=== PATIENT | female | born 1970 | race Caucasian/White ===

== ENCOUNTER → 2024-07-04 | Outpatient (CLI) | payer BC, SELFPAY ==
[2024-07-04 12:19] LABS: Absolute Lymphocyte Count 3.15 X10^3/uL (0.83-4.51); Absolute Neutrophil Count 5.7 X10^3/uL (2.0-7.7); Basophil# 0.28 X10^3/uL; Eosinophil# 4.15 X10^3/uL; Eosinophils% 29.3 % (0-5); Hematocrit 46.7 % (37-47); Hemoglobin 15.3 g/dL (12.0-15.0); Lymphocyte # 3.15 X10^3/ul (0.83-4.51); Lymphocyte % 22.3 % (19-41); Mean Corp Hgb Conc 32.8 g/dL (32-36); Mean Corpuscular Hgb 28.3 pg (27.0-32.0); Mean Corpuscular Volume 86.3 fL (81-99); Mean Platelet Vol. 8.8 fl (6.2-12.0); Monocyte# 0.71 X10^3/uL; NRBC Flagged by Analyzer 0 % (0-5); Neutrophil # 5.72 X10^3/uL (2.7-7.7); Neutrophil % 40.4 % (47-70); POSITIVE DIFFERENTIAL YES; Platelet Count 472 K/mm3 (150-450); RBC Distribution Width CV 12.7 % (11.6-14.6); RBC Distribution Width SD 39.7 fl (35.1-43.9); Red Blood Count 5.41 M/mm3 (4.2-5.4); White Blood Count 14.2 K/mm3 (4.4-11.0)
[2024-07-04 12:22] LABS: Color, Urine Yellow (Yellow); Glucose, Dipstick Normal (Normal); Ketone-Dipstick Negative (Negative); Leukocyte Esterase-Dipstick 25 /ul (Negative); Nitrite-Dipstick Negative (Negative); Occult Blood-Urine Negative /ul (Negative); Protein-Dipstick 15 mg/dl (Negative); Urine Bilirubin Dipstick Negative (Negative); Urine Clarity Sl. Cloudy (Clear); Urine Urobilinogen Normal (Normal)
[2024-07-04 12:43] LABS: Protein, Urine (Random) 7.7 mg/dL (<11.9); Protein:Creat Ratio 76 mg/g CRE (0-200)
[2024-07-04 12:50] LABS: AST(SGOT) 11 U/L (15-37); Alanine Aminotransfer ALT/SGPT 12 U/L (13-56); Albumin, Serum 3.9 g/dL (3.2-5.0); Alkaline Phosphatase 111 U/L (45-117); Anion Gap 6 (5-15); BUN 17 mg/dL (7-18); Calcium,Total 9.5 mg/dL (8.5-10.1); Chloride 103 mmol/L (98-107); Creatinine, Serum 0.89 mg/dL (0.55-1.02); EST Glomerular Filtration Rate 70 mL/min (>60); Est Glom Filt Rate - Afr Amer 85 mL/min (>60); Globulin 3.8 g/dL (2.2-4.2); Glucose 82 mg/dL (74-106); Protein, Total 7.7 g/dL (6.4-8.2); Sodium Level 137 mmol/L (136-145)
[2024-07-04 13:11] LABS: Differential Indicated SCAN CRITERIA MET
[2024-07-04 13:12] LABS: Differential Comment SCANNED
[2024-07-04 13:15] LABS: Hepatitis B Surface Antibody Reactive; Hepatitis B Surface Antigen Non-Reactive (Nonreactive); Hepatitis C Antibody Non-Reactive (Nonreactive)
[2024-07-04 16:21] LABS: Pathologist Review Reviewed
[2024-07-04 18:47] LABS: EXAGEN MAILED SPECIMEN
[2024-07-07 14:08] LABS: Dilute Prothrombin Time (dPT) 44.6 sec (0.0-47.6); Dilute Russell Viper Venom 40.3 sec (0.0-47.0); Hexagonal Phase Phospholipid 2 5 sec (0-11); Interpretation Comment: (.); PTT-LA 45.7 sec (0.0-43.5); PTT-LA Mix 41.8 sec (0.0-40.5); Thrombin Time 21.1 sec (0.0-23.0); dPT Confirm Ratio 1.14 Ratio (0.00-1.34)
== END | disposition home or self-care (01) ==
PROVIDERS: Referring Provider Internal Medicine Rheumatology; Visit Provider Internal Medicine Rheumatology
DX: M06.4 Inflammatory polyarthropathy (principal); R76.8 Other specified abnormal immunological findings in serum; M79.7 Fibromyalgia
CPT/HCPCS: 36415; 80053; 81002; 82570; 84156; 85025; 86706; 86803; 87340

== ENCOUNTER → 2025-03-15 | Outpatient (CLI) | payer BC, SELFPAY ==
--- NOTE | 2025-03-15 15:33 | RAD_ITS ---
PROCEDURE: CHEST PA AND LATERAL 03/15/2025 REASON FOR EXAM: NURSING HOME DRUG THERAPY TECHNIQUE: Procedure Code: RADCXR Modality: DX Procedure: CHEST PA AND LATERAL COMPARISON: None FINDINGS: Hardware: None Heart: The heart size is normal. Mediastinum: The mediastinal contour is unremarkable. Lungs: The lungs are clear. Bones: There is slight increased kyphotic curvature of the thoracic spine. There is a very subtle dextroscoliosis of the thoracic spine. Very mild spondylosis is noted. RAD/Chest PA and Lateral IMPRESSION: No acute cardiopulmonary process is identified radiographically. Reading Location: [id number]
--- OUTSIDE RECORDS SUMMARY | 2025-03-15 15:50 | XMS RPT_ITS | CCD ---
Author Organization [facility] Care Team Providers Care Tanning Wheel Operator Name Role Phone TRACY GUEVARA Unavailable Unavailable Clyde COATES Carmen Loli Unavailable [phone] Carmen Tang Primary Care Provider [phone] Clyde COATES Carmen Loli Unavailable Carmen Tang Primary Care Provider [phone] CARMEN TANG Primary Care Unavailable CARMEN TANG Attending Unavailable Carmen Tang Attending Unavailable Clyde Carmen L Attending Unavailable Al Nemr, Hazel Attending Unavailable Clyde COATES Carmen Loli Unavailable Clyde RETAIL LOSS PREVENTION SPECIALISTKEVIN Carmen Eloisa Primary Care Provider EVANGELIST DIAZ MD Attending Unavail able CLYDE COATES CARMEN Pleitez Primary Care Physician SHIRA SANCHEZ, MAHOGANY Armenta Attending Unavailable CLYDE COATES CARMEN Pricilla Primary Care Unavailable GONZÁLEZ SANCHEZ, SUE Consulting Unavailable JESICA SANCHEZ, LM Consulting Unavailable CLYDE COATES CARMEN Pricilla Primary Care Unavailable EVANGELIST DIAZ MD Attending Unavail able Mary Kate FERRERA Primary Care Unavailable Zuleika Fleming Referring Unavailable Zuleika Fleming Attending Unavailable ROOSEVELTCOREEN WYNN Attending Unavailable CLYDE CARMEN L Primary Care Unavailable ROOSEVELTCOREEN WYNN Attending Unavailable CLYDE CARMEN L Primary Care Unavailable ROOSEVELTCOREEN WYNN Attending Unavailable CLYDE CARMEN Pricilla Primary Care Unavailable ROOSEVELTCOREEN WYNN Referring Unavailable CLYDE CARMEN Pricilla Primary Care Unavailable ROOSEVELTCOREEN WYNN Attending Unavailable AL NEMR, BADIE Referring Unavailable FREEMAN TANGAH E Primary Care Unavailable AL HAZEL MAZARIEGOS Referring Unavailable TANGCARMEN Primary Care Unavailable AL HAZEL MAZARIEGOS Referring Unavailable CLYDECARMEN Eloisa Primary Care Unavailable ZULEIKA FLEMING Referring Unavailable CLYDECARMEN Eloisa Primary Care Unavailable Medications Current Medications Medication Drug Class(es) Dates Sig (Normalized) Sig (Original) acetaminophen 325 mg oral capsule (5 sources) acetaminophen (TYLENOL) 325 mg cap Take by mouth. 0 Active Comment on above: Take by mouth. alendronic acid 70 mg oral tablet (1 source) Bisphosphonate Start: 03-06-2024 alendronate 70 mg oral tablet Dose : 70 mg = 1 tab(s), Oral, Tuesday, # 12 tab(s), 0 Refill(s) Start Date: 03/06/24 Status: Ordered aspirin 81 mg delayed release oral tablet (1 source) Platelet Aggregation Inhibitor, Nonsteroidal Anti-inflammatory Drug Start: 03-06-2024 aspirin 81 mg oral delayed release tablet Dose : 81 mg = 1 tab(s), Oral, Daily, Last Dose 02/27/24, 0 Refill(s) Start Date: 03/06/24 Status: Ordered Calcium (1 source) Phosphate Binder, Calcium Start: 03-06-2024 take 1 tablet by mouth once daily Calcium 600+D oral tablet Dose = 1 tab(s), Oral, Daily, 0 Refill(s) Start Date: 03/06/24 Status: Ordered calcium acetate (5 sources) CALCIUM ACETATE ORAL Take by mouth. 0 Active Comment on above: Take by mouth. ergocalciferol 1.25 mg oral capsule (6 sources) Provitamin D2 Compound Start: 03-06-2024 ergocalciferol 50,000 intl units (1.25 mg) oral capsule Dose : 50,000 International_Unit = 1 cap(s), Oral, Tuesday, # 4 cap(s), 0 Refill(s) Start Date: 03/06/24 Status: Ordered Start: 03-14-2021 ergocalciferol 50,000 unit capsule (VITAMIN D2, DRISDOL) Fish Oils (1 source) Start: 03-06-2024 Fish Oil 1000 mg oral capsule Dose : 1,000 mg = 1 cap(s), Oral, qDay, # 90 cap(s), 0 Refill(s) Start Date: 03/06/24 Status: Ordered fluticasone propionate 0.05 mg/actuat metered dose nasal spray (5 sources) Corticosteroid Start: 01-02-2021 fluticasone (F LONASE) 50 mcg/actuation nasal spray folic acid 0.8 mg oral tablet (6 sources) Start: 03-06-2024 folic acid 0.8 mg oral tablet Dose : 0.8 mg = 1 tab(s), Oral, qAM, # 250 tab(s), 0 Refill(s) Start Date: 03/06/24 Status: Ordered FOLIC ACID ORAL Take by mouth. 0 Active Comment on above: Take by mouth. hydrOXYzine hydrochloride 50 mg oral tablet (5 sources) Antihistamine Start: 2020 hydrOXYzine HCl (ATARAX) 50 mg tablet montelukast 10 mg oral tablet (5 sources) Leukotriene Receptor Antagonist take 1 tablet by mouth once daily at bedtime montelukast (SINGULAIR) 10 mg tablet Take 10 mg by mouth daily at bedtime. 0 Active Comment on above: Take 10 mg by mouth daily at bedtime. 60 actuat tiotropium 0.0025 mg/actuat inhalation spray (1 source) Anticholinergic Start: 2023 take 2 puff(s) by inhalation once daily in the morning Spiriva Respimat 60 ACT 2.5 mcg/inh inhalation aerosol 2 puff(s), Inhalation, qAM, # 4 gram(s), 0 Refill(s) Start Date: 03/06/24 Status: Ordered topiramate 100 mg oral tablet (5 sources) Start: 2020 take 1 tablet by mouth twice daily topiramate (TOPAMAX) 100 mg tablet TAKE 1 TABLET BY MOUTH TWICE A DAY 60 tablet 2 05/06/2021 Active Comment on above: TAKE 1 TABLET BY LIZY TWICE A DAY vitamin b12 1 mg oral tablet (5 sources) Vitamin B12 take 1 tablet by mouth once daily cyanocobalamin (VITAMIN B-12) 1,000 mcg tab Take 1,000 mcg by mouth once daily. 0 Active Comment on above: Take 1,000 mcg by mo [facility] once daily. Vitamin B12 5000 mcg oral tablet, disintegrating (1 source) Start: 2023 Vitamin B12 5000 mcg oral tablet, disintegrating Dose : 5,000 mcg = 1 tab(s), Oral, qDay, # 100 tab(s), 0 Refill(s) Start Date: 03/06/24 Status: Ordered Problems Active Problems Problem Classification Problem Date Documented Date Episodic/Chronic Immunizations and screening for infectious disease (1 source) Other specified abnormal immunological findings in serum; Translations: [False positive serological test for syphilis] Onset: 09-07-2024 Episodic Other aftercare (2 sources) Other detention (current) drug therapy; Translations: [Other home demonstrator (current) drug therapy] Onset: 05-09-2024 Episodic Other connective tissue disease (1 source) Fibromyalgia; Translations: [Scapulohumeral fibrositis] Onset: 09-07-2024 Episodic Other infections; including parasitic (2 sources) Lyme disease; Translations: [Lyme disease, unspecified] 10-18-2023 Episodic Other screening for suspected conditions (not mental disorders or infectious disease) (4 sources) Abnormal coagulation profile; Translations: [Abnormal coagulation profile] Onset: 01-25-2024 Episodic Rheumatoid arthritis and related disease (2 sources) Inflammatory polyarthropathy; Translations: [Inflammatory polyarthropathy] Onset: 07-26-2024 Chronic Systemic lupus erythematosus and connective tissue disorders (1 source) Systemic involvement of connective tissue, unspecified; Translations: [Systemic involvement of connective tissue, unspecified] Onset: 04-12-2024 Chronic Past or Other Problems Problem Classification Problem Date Documented Da te Episodic/Chronic Fever of unknown origin (8 sources) Fever; Translations: [Fever presenting with conditions classified elsewhere] Onset: 10-25-2023 10-18-2023 Episodic Headache; including migraine (8 sources) Daily headache; Translations: [Headache, chronic daily] Onset: 04-07-2021 04-07-2021 Episodic Other bone disease and musculoskeletal deformities (1 source) Disorder of bone, unspecified; Translations: [Disorder of bone, unspecified] Onset: 04-12-2024 Episodic Other infections; including parasitic (2 sources) Lyme disease, unspecified; Translations: [Lyme disease] Onset: 10-25-2023 Episodic Thyroid disorders (1 source) Disorder of thyroid, unspecified; Translations: [Disorder of thyroid, unspecified] Onset: 04-12-2024 Episodic Unclassified (1 source) SCREENING LAST MAMMO 07-29-21 Onset: 09-14-2022 Results Test Name Value Interpretation Reference Range Facil ity CBC W Auto Differential pane l (Bld)on 09-07-2024 Basophils (Bld) [#/Vol] 0.07 10*3/uL Normal <0.11 [facility] Comment on above: Order Comment: Speci men Type: BLOOD SPECIMENOrdering Facility: [facility] Address: [address] [place] [address] Performed By: #### 5 7021-8 ####[facility] LABCLIA [id number] [place] [address] [place] Basophils/100 WBC (Bld) 0.6 % [facility] Comment on above: Order Comment: Speci men Type: BLOOD SPECIMENOrdering Facility: [facility] Address: [address] [place] [address] Performed By: #### 5 7021-8 ####[facility] [id number] [place] [address] [place] Differential cell count method Nom (Bld) Auto Normal [facility] Comment on above: Order Comment: Speci men Type: BLOOD SPECIMENOrdering Facility: [facility] Address: [address] [place] [address] Performed By: #### 5 7021-8 ####[facility] [id number] [place] [address] [place] Eosinophils (Bld) [#/Vol] 0.05 10*3/uL Normal <0.46 [facility] Comment on above: Order Comment: Speci men Type: BLOOD SPECIMENOrdering Facility: [facility] Address: [address] [place] [address] Performed By: #### 5 7021-8 ####[facility] LABIA [id number] [place] [address] [place] Eosinophils/100 WBC (Bld) 0.4 % [facility] Comment on above: Order Comment: Speci men Type: BLOOD SPECIMENOrdering Facility: [facility] Address: [address] [place] [address] Performed By: #### 5 7021-8 ####[facility] LABIA [id number] [place] [address] [place] Erythrocyte distribution width (RBC) [Ratio] 14.2 % Normal 11.5-15.0 [facility] Comment on above: Order Comment: Speci men Type: BLOOD SPECIMENOrdering Facility: [facility] Address: [address] [place] [address] Performed By: #### 5 7021-8 ####[facility] [id number] [place] [address] [facility] [place] Hematocrit (Bld) [Volume fraction] 44.4 % Normal 36.0-46.0 [facility] Comment on above: Order Comment: Speci men Type: BLOOD SPECIMENOrdering Facility: [facility] Address: [address] [place] [address] Performed By: #### 5 7021-8 ####[facility] [id number] [address] [place] Hemoglobin (Bld) [Mass/Vol] 14.8 g/dL Normal 11.5-15.5 [facility] Comment on above: Order Comment: Speci men Type: BLOOD SPECIMENOrdering Facility: [facility] Address: [address] [place] [address] Performed By: #### 5 7021-8 ####[facility] [id number] [address] [place] Immature granulocytes (Bld) [#/Vol] 0.05 10*3/uL Normal <0.10 [facility] Comment on above: Order Comment: Speci men Type: BLOOD SPECIMENOrdering Facility: [facility] Address: [address] [place] [address] Performed By: #### 5 7021-8 ####[facility] [id number] [address] [place] Immature granulocytes/100 WBC (Bld) 0.4 % Normal [facility] Comment on above: Order Comment: Speci men Type: BLOOD SPECIMENOrdering Facility: [facility] Address: [address] [place] [address] Performed By: #### 5 7021-8 ####[facility] LABIA [id number] [address] Lymphocytes (Bld) [#/Vol] 2.28 10*3/uL Normal 1.00-4.00 [facility] Comment on above: Order Comment: Speci men Type: BLOOD SPECIMENOrdering Facility: [facility] Address: [address] [place] [address] Performed By: #### 5 7021-8 ####[facility] [id number] [address] Lymphocytes/100 WBC (Bld) 19.6 % Normal [facility] Comment on above: Order Comment: Speci men Type: BLOOD SPECIMENOrdering Facility: [facility] Address: [address] [place] [address] Performed By: #### 5 7021-8 ####[facility] [id number] [address] [place] MCH (RBC) [Entitic mass] 29.0 pg Normal 26.0-34.0 [facility] Comment on above: Order Comment: Speci men Type: BLOOD SPECIMENOrdering Facility: [facility] Address: [address] [place] [address] Performed By: #### 5 7021-8 ####[facility] [id number] [address] [place] MCHC (RBC) [Mass/Vol] 33.3 g/dL Normal 30.5-36.0 [facility] Comment on above: Order Comment: Speci men Type: BLOOD SPECIMENOrdering Facility: [facility] Address: [address] [place] [address] Performed By: #### 5 7021-8 ####[facility] LABIA [id number] [address] [place] MCV (RBC) [Entitic vol] 87.1 fL Normal 80.0-100.0 [facility] Comment on above: Order Comment: Speci men Type: BLOOD SPECIMENOrdering Facility: [facility] Address: [address] [place] [address] Performed By: #### 5 7021-8 ####[facility] LABIA [id number] [place] [address] [place] Monocytes (Bld) [#/Vol] 0.55 10*3/uL Normal <0.87 [facility] Comment on above: Order Comment: Speci men Type: BLOOD SPECIMENOrdering Facility: [facility] Address: [address] [place] [address] Performed By: #### 5 7021-8 ####[facility] LABIA [id number] [place] [address] [place] Monocytes/100 WBC (Bld) 4.7 % Normal [facility] Comment on above: Order Comment: Speci men Type: BLOOD SPECIMENOrdering Facility: [facility] Address: [address] [place] [address] Performed By: #### 5 7021-8 ####[facility] LABIA [id number] [place] [address] [place] Neutrophils (Bld) [#/Vol] 8.63 10*3/uL High 1.45-7.50 [facility] Comment on above: Order Comment: Speci men Type: BLOOD SPECIMENOrdering Facility: [facility] Address: [address] [place] [address] Performed By: #### 5 7021-8 ####[facility] LABCLIA [id number] [place] [address] [place] Neutrophils/100 WBC (Bld) 74.3 % Normal [facility] Comment on above: Order Comment: Speci men Type: BLOOD SPECIMENOrdering Facility: [facility] Address: [address] [place] [address] Performed By: #### 5 7021-8 ####[facility] LABIA [id number] [place] [address] [place] Nucleated RBC (Bld) [#/Vol] 10*3/uL Normal <0.01 [facility] Comment on above: Order Comment: Speci men Type: BLOOD SPECIMENOrdering Facility: [facility] Address: [address] [place] [address] Performed By: #### 5 7021-8 ####[facility] LABCLIA [id number] [place] [address] [place] Nucleated RBC/100 WBC (Bld) [Ratio] 0.0 /100 WBC Normal [facility] Comment on above: Order Comment: Speci men Type: BLOOD SPECIMENOrdering Facility: [facility] Address: [address] [place] [address] Performed By: #### 5 7021-8 ####[facility] LABIA [id number] [place] [address] [place] Platelet mean volume (Bld) [Entitic vol] 8.9 fL Low 9.0-12.7 [facility] Comment on above: Order Comment: Speci men Type: BLOOD SPECIMENOrdering Facility: [facility] Address: [address] [place] [address] Performed By: #### 5 7021-8 ####[facility] LABIA [id number] [place] [address] [place] Platelets (Bld) [#/Vol] 365 10*3/uL Normal 150-400 [facility] Comment on above: Order Comment: Speci men Type: BLOOD SPECIMENOrdering Facility: [facility] Address: [address] [place] [address] Performed By: #### 5 7021-8 ####[facility] LABCLIA [id number] [place] [address] [place] RBC (Bld) [#/Vol] 5.10 10*6/uL Normal 3.90-5.20 [facility] Comment on above: Order Comment: Speci men Type: BLOOD SPECIMENOrdering Facility: [facility] Address: [address] [place] [address] Performed By: #### 5 7021-8 ####[facility] LABCLIA [id number] [place] [address] [place] WBC (Bld) [#/Vol] 11.63 10*3/uL High 3.70-11.00 [facility] Comment on above: Order Comment: Speci men Type: BLOOD SPECIMENOrdering Facility: [facility] Address: [address] [place] [address] Performed By: #### 5 7021-8 ####[facility] LABCLIA [id number] [place] [address] [place] Comprehensive metabolic 2000 panelon 09-07-2024 Albumin [Mass/Vol] 4.8 g/dL Normal 3.9-4.9 [facility] Comment on above: Order Comment: Speci men Type: BLOOD SPECIMEN Ordering Facility: [facility] Address: [address] [place] [address] Performed By: #### 2 4323-8 #### [facility] LAB CLIA [id number] [address] [place] [address] [place] ALP [Catalytic activity/Vol] 93 U/L Normal 34-123 [facility] Comment on above: Order Comment: Speci men Type: BLOOD SPECIMEN Ordering Facility: [facility] Address: [address] [place] [address] Performed By: #### 2 4323-8 #### [facility] CLIA [id number] [address] [place] [address] [place] ALT [Catalytic activity/Vol] 16 U/L Normal 7-38 [facility] Comment on above: Order Comment: Speci men Type: BLOOD SPECIMEN Ordering Facility: [facility] Address: [address] [place] [address] Performed By: #### 2 4323-8 #### [facility] CLIA [id number] [address] [place] [address] [place] Anion gap [Moles/Vol] 12 mmol/L Normal 8-15 [facility] Comment on above: Order Comment: Speci men Type: BLOOD SPECIMEN Ordering Facility: [facility] Address: [address] [place] [address] Performed By: #### 2 4323-8 #### [facility] CLIA [id number] [address] [place] [address] [place] AST [Catalytic activity/Vol] 19 U/L Normal 13-35 [facility] Comment on above: Order Comment: Speci men Type: BLOOD SPECIMEN Ordering Facility: [facility] Address: [address] [place] [address] Performed By: #### 2 4323-8 #### [facility] CLIA [id number] [address] [place] [address] [place] Bilirubin [Mass/Vol] 0.2 mg/dL Normal 0.2-1.3 [facility] Comment on above: Order Comment: Speci men Type: BLOOD SPECIMEN Ordering Facility: [facility] Address: [address] [place] [address] Performed By: #### 2 4323-8 #### [facility] CLIA [id number] [address] [place] [address] [place] Calcium [Mass/Vol] 9.9 mg/dL Normal 8.5-10.2 [facility] Comment on above: Order Comment: Speci men Type: BLOOD SPECIMEN Ordering Facility: [facility] Address: [address] [place] [address] Performed By: #### 2 4323-8 #### [facility] CLIA [id number] [address] [place] [address] [place] Chloride [Moles/Vol] 102 mmol/L Normal 98-107 [facility] Comment on above: Order Comment: Speci men Type: BLOOD SPECIMEN Ordering Facility: [facility] Address: [address] [place] [address] Performed By: #### 2 4323-8 #### [facility] CLIA [id number] [address] [place] [address] [place] CO2 [Moles/Vol] 25 mmol/L Normal 22-30 [facility] Comment on above: Order Comment: Speci men Type: BLOOD SPECIMEN Ordering Facility: [facility] Address: [address] [place] [address] Performed By: #### 2 4323-8 #### [facility] CLIA [id number] [address] [place] [address] [place] Creatinine [Mass/Vol] 0.74 mg/dL Normal 0.58-0.96 [facility] Comment on above: Order Comment: Jeanne escobar Type: BLOOD SPECIMEN Ordering Facility: [facility] Address: [address] [place] [address] Performed By: #### 2 4323-8 #### [facility] CLIA [id number] [address] [place] [address] [place] Creatinine and Glomerular filtration rate.predicted panel (S/P/Bld) 96 mL/min/1.73m??? Normal >=60 [facility] Comment on above: Order Comment: Jeanne escobar Type: BLOOD SPECIMEN Ordering Facility: [facility] Address: [address] [place] [address] Result Comment: Teresa mated Glomerular Filtration Rate (eGFR) is calculated using the 2020 CKD-EPI creatinine equation. This equation utilizes serum creatinine, sex, and age as parameters. The creatinine assay has traceable calibration to isotope dilution-mass spectrometry. Refer to KDIGO guidelines for clinical interpretation. In patients with unstable renal function, e.g. those with acute kidney injury, the eGFR may not accurately reflect actual GFR. Performed By: #### 2 4323-8 #### [facility] CLIA [id number] [address] [place] [address] [place] Glucose [Mass/Vol] 75 mg/dL Normal 74-99 [facility] Comment on above: Order Comment: Jeanne escobar Type: BLOOD SPECIMEN Ordering Facility: [facility] Address: [address] [place] [address] Result Comment: The [place] Diabetes Association (ADA) provides guidance for cutoff values for fasting glucose and random glucose. The ADA defines fasting as no caloric intake for at least 8 hours. Fasting plasma glucose results between 100 to 125 mg/dL indicate increased risk for diabetes (prediabetes). Fasting plasma glucose results greater than or equal to 126 mg/dL meet the criteria for diagnosis of diabetes. In the absence of unequivocal hyperglycemia, results should be confirmed by repeat testing. In a patient with classic symptoms of hyperglycemia or hyperglycemic crisis, random plasma glucose results greater than or equal to 200 mg/dL meet the criteria for diagnosis of diabetes. Reference: Standards of Medical Care in Diabetes 2016, [place] Diabetes Association. Diabetes Care. 2016.39(Suppl 1). Performed By: #### 2 4323-8 #### [facility] CLIA [id number] [address] [place] [address] [place] Potassium [Moles/Vol] 4.1 mmol/L Normal 3.7-5.1 [facility] Comment on above: Order Comment: Jeanne escobar Type: BLOOD SPECIMEN Ordering Facility: [facility] Address: [address] [place] [address] Performed By: #### 2 432-8 #### [facility] CLIA [id number] [address] [place] [address] [place] Protein [Mass/Vol] 7.6 g/dL Normal 6.3-8.0 [facility] Comment on above: Order Comment: Jeanne escobar Type: BLOOD SPECIMEN Ordering Facility: [facility] Address: [address] [place] [address] Performed By: #### 2 432-8 #### [facility] CLIA [id number] [address] [place] [address] [place] Sodium [Moles/Vol] 139 mmol/L Normal 136-144 [facility] Comment on above: Order Comment: Jeanne escobar Type: BLOOD SPECIMEN Ordering Facility: [facility] Address: [address] [place] [address] Performed By: #### 2 432-8 #### [facility] CLIA [id number] [address] [place] [address] [place] Urea nitrogen [Mass/Vol] 10 mg/dL Normal 7-21 [facility] [place] Comment on above: Order Comment: Jeanne escobar Type: BLOOD SPECIMEN Ordering Facility: [facility] Address: [address] [place] [address] Performed By: #### 2 4323-8 #### [facility] CLIA [id number] [address] [place] [address] [place] Lupus Anticoagulant Compon 0 07-07-2024 aPTT Coag (Bld) [Time] 45.7 s High 0.0-43.5 [facility] Comment on above: Performed By: #### L 500.4100, L500.2500 #### [facility] [address] [place], [address] aPTT Coag (Bld) [Time] 41.8 s High 0.0-40.5 [facility] Comment on above: Performed By: #### L 500.4100, L500.2500 #### [facility] [address] [place], [address] DILUTE PT (dPT) 44.6 sec Normal 0.0-47.6 [facility] Comment on above: Performed By: #### L 500.4100, L500.2500 #### [facility] [address] [place], [address] dPT Conf. Ratio 1.14 Ratio Normal 0.00-1.34 [facility] Comment on above: Performed By: #### L 500.4100, L500.2500 #### [facility] [address] [place], [address] DRVVT 40.3 sec Normal 0.0-47.0 [facility] Comment on above: Performed By: #### L 500.4100, L500.2500 #### [facility] [address] [place], [address] HEX PHAS PHOSPH 5 sec Normal 0-11 [facility] Comment on above: Performed By: #### L 500.4100, L500.2500 #### [facility] [address] [place], [address] Interpretation Comment: Normal . [facility] Comment on above: Result Comment: No l upus anticoagulant was detected. Results suggest the presence of an inhibitor. The presence of heparin, which is a non-specific inhibitor, may cause this pattern of results. Since the PTT-LA was extended and the dRVVT was within normal limits, a specific inhibitor to factor VIII, IX, XI, or XII cannot be excluded. It should be noted that mixing studies performed on samples with minimally extended PTT-LA results can be equivocal. Normal plasma can overcome weak inhibitors, also resulting in a correction of the mixing study. As antibody titers may fluctuate with time, repeat testing may be indicated and ideally should be performed in the absence of anticoagulant therapy. Performed at: [address] [id number] Technical Business Analyst: Markel Fabian MD, Phone: [phone] Performed By: #### L 500.4100, L500.2500 #### [facility] [address] [place], [address] THROMBIN TIME 21.1 sec Normal 0.0-23.0 [facility] Comment on above: Performed By: #### L 500.4100, L500.2500 #### [facility] [address] [place], [address] Basic Metabolic Profile (BMP )on 07-04-2024 BUN Normal 7-18 [facility] Comment on above: Result Comment: NOT CORRECT PT Performed By: #### L 500.4100, L500.2500 #### [facility] [address] [place], [address] BUN/CRE Normal 10-20 [facility] Comment on above: Result Comment: NOT CORRECT PT Performed By: #### L 500.4100, L500.2500 #### [facility] [address] [place], [address] CA,Total Normal 8.5-10.1 [facility] Comment on above: Result Comment: NOT CORRECT PT Performed By: #### L 500.4100, L500.2500 #### [facility] [address] [place], [address] CL Normal 98-107 [facility] Comment on above: Result Comment: NOT CORRECT PT Performed By: #### L 500.4100, L500.2500 #### [facility] [address] [place], [address] CO2 Normal 21.0-32.0 [facility] Comment on above: Result Comment: NOT CORRECT PT Performed By: #### L 500.4100, L500.2500 #### [facility] [address] [place], [address] CREAT,SERUM Normal 0.55-1.02 [facility] Comment on above: Result Comment: NOT CORRECT PT Performed By: #### L 500.4100, L500.2500 #### [facility] [address] [place], [address] EST GFR Normal >60 [facility] Comment on above: Result Comment: NOT CORRECT PT Performed By: #### L 500.4100, L500.2500 #### [facility] [address] [place], [address] EST GFR - AA Normal >60 [facility] Comment on above: Result Comment: NOT CORRECT PT Performed By: #### L 500.4100, L500.2500 #### [facility] [address] [place], [address] GAP Normal 5-15 [facility] Comment on above: Result Comment: NOT CORRECT PT Performed By: #### L 500.4100, L500.2500 #### [facility] [address] [place], [address] GLU Normal 74-106 [facility] Comment on above: Result Comment: NOT CORRECT PT Performed By: #### L 500.4100, L500.2500 #### [facility] [address] [place], [address] Potassium Normal 3.5-5.1 [facility] Comment on above: Result Comment: NOT CORRECT PT Performed By: #### L 500.4100, L500.2500 #### [facility] [address] [place], [address] Basic Metabolic Profile (BMP) Normal 136-145 [facility] Comment on above: Result Comment: NOT CORRECT PT Performed By: #### L 500.4100, L500.2500 #### [facility] [address] [place], [address] CBC W/Diff, Automatedon 06-20 PATH REV Reviewed Normal [facility] Comment on above: Result Comment: LOSI S WITH ABSOLUTE EOSINOPHILIA Polycythemia Clinical correlation necessary. Rafael Gomes M.D. 07/04/24 AMENDED REPORT 07/04/240 PATH REV previously reported as: October Performed By: #### L 100.0100, L3890.6200, L500.4050, L3890.6300, L501.0900, L801.1549, L400.2010, L4500.0100, L3890.6100 #### [facility] [address] [place], [address] Comprehensive Metabolic Prof ilon 07-04-2024 Albumin [Mass/Vol] 3.9 g/dL Normal 3.2-5.0 [facility] Comment on above: Performed By: #### L 100.0100, L3890.6200, L500.4050, L3890.6300, L501.0900, L801.1549, L400.2010, L4500.0100, L3890.6100 #### [facility] [address] [place], [address] Albumin/Globulin [Mass ratio] 1.0 {ratio} Normal 0.9-2.4 [facility] Comment on above: Performed By: #### L 100.0100, L3890.6200, L500.4050, L3890.6300, L501.0900, L801.1549, L400.2010, L4500.0100, L3890.6100 #### [facility] [address] [place], [address] ALK P 111 U/L Normal 45-117 [facility] Comment on above: Performed By: #### L 100.0100, L3890.6200, L500.4050, L3890.6300, L501.0900, L801.1549, L400.2010, L4500.0100, L3890.6100 #### [facility] [address] [place], [address] ALT [Catalytic activity/Vol] 12 U/L Low 13-56 [facility] Comment on above: Performed By: #### L 100.0100, L3890.6200, L500.4050, L3890.6300, L501.0900, L801.1549, L400.2010, L4500.0100, L3890.6100 #### [facility] [address] [place], [address] AST [Catalytic activity/Vol] 11 U/L Low 15-37 [facility] Comment on above: Performed By: #### L 100.0100, L3890.6200, L500.4050, L3890.6300, L501.0900, L801.1549, L400.2010, L4500.0100, L3890.6100 #### [facility] [address] [place], [address] Bilirubin [Mass/Vol] 0.30 mg/dL Normal 0.20-1.00 [facility] Comment on above: Result Comment: For patients on eltrombopag therapy, use of Dimension [place] TBIL is not recommended. Performed By: #### L 100.0100, L3890.6200, L500.4050, L3890.6300, L501.0900, L801.1549, L400.2010, L4500.0100, L3890.6100 #### [facility] [address] [place], [address] BUN/CRE 19.0 RATIO Normal 10-20 [facility] Comment on above: Performed By: #### L 100.0100, L3890.6200, L500.4050, L3890.6300, L501.0900, L801.1549, L400.2010, L4500.0100, L3890.6100 #### [facility] [address] [place], [address] CA,Total 9.5 mg/dL Normal 8.5-10.1 [facility] Comment on above: Performed By: #### L 100.0100, L3890.6200, L500.4050, L3890.6300, L501.0900, L801.1549, L400.2010, L4500.0100, L3890.6100 #### [facility] [address] [place], [address] Chloride [Moles/Vol] 103 mmol/L Normal 98-107 [facility] Comment on above: Performed By: #### L 100.0100, L3890.6200, L500.4050, L3890.6300, L501.0900, L801.1549, L400.2010, L4500.0100, L3890.6100 #### [facility] [address] [place], [address] CO2 [Moles/Vol] 28.0 mmol/L Normal 21.0-32.0 [facility] Comment on above: Performed By: #### L 100.0100, L3890.6200, L500.4050, L3890.6300, L501.0900, L801.1549, L400.2010, L4500.0100, L3890.6100 #### [facility] [address] [place], [address] Creatinine [Mass/Vol] 0.89 mg/dL Normal 0.55-1.02 [facility] Comment on above: Result Comment: The validity of the calculated GFR GFRAA in patients over 70 years has not been determined. Clinical correlation is essential. Performed By: #### L 100.0100, L3890.6200, L500.4050, L3890.6300, L501.0900, L801.1549, L400.2010, L4500.0100, L3890.6100 #### [facility] [address] [place], [address] EST GFR - AA 85 mL/min Normal >60 [facility] Comment on above: Result Comment: Afri can English GFR Calc Performed By: #### L 100.0100, L3890.6200, L500.4050, L3890.6300, L501.0900, L801.1549, L4.2010, L4500.0100, L3890.6100 #### [facility] [address] [place], [address] GAP 6 Normal 5-15 [facility] Comment on above: Performed By: #### L 100.0100, L3890.6200, L500.4050, L3890.6300, L501.0900, L801.1549, L400.2010, L4500.0100, L3890.6100 #### [facility] [address] [place], [address] GFR/1.73 sq M.predicted among non-blacks MDRD (S/P/Bld) [Vol rate/Area] 70 mL/min/{1.73_m2} Normal >60 [facility] Comment on above: Result Comment: Non- GFR Calc Performed By: #### L 100.0100, L3890.6200, L500.4050, L3890.6300, L501.0900, L801.1549, L400.2010, L4500.0100, L3890.6100 #### [facility] [address] [place], [address] Globulin (S) [Mass/Vol] 3.8 g/dL Normal 2.2-4.2 [facility] Comment on above: Performed By: #### L 100.0100, L3890.6200, L500.4050, L3890.6300, L501.0900, L801.1549, L400.2010, L4500.0100, L3890.6100 #### [facility] [address] [place], [address] Glucose [Mass/Vol] 82 mg/dL Normal 74-106 [facility] Comment on above: Performed By: #### L 100.0100, L3890.6200, L500.4050, L3890.6300, L501.0900, L801.1549, L400.2010, L4500.0100, L3890.6100 #### [facility] [address] [place], [address] Potassium [Moles/Vol] 4.0 mmol/L Normal 3.5-5.1 [facility] Comment on above: Performed By: #### L 100.0100, L3890.6200, L500.4050, L3890.6300, L501.0900, L801.1549, L400.2010, L4500.0100, L3890.6100 #### [facility] [address] [place], [address] Sodium [Moles/Vol] 137 mmol/L Normal 136-145 [facility] Comment on above: Performed By: #### L 100.0100, L3890.6200, L500.4050, L3890.6300, L501.0900, L801.1549, L400.2010, L4500.0100, L3890.6100 #### [facility] [address] [place], [address] T PROT 7.7 g/dL Normal 6.4-8.2 [facility] Comment on above: Performed By: #### L 100.0100, L3890.6200, L500.4050, L3890.6300, L501.0900, L801.1549, L400.2010, L4500.0100, L3890.6100 #### [facility] [address] [place], [address] Urea nitrogen [Mass/Vol] 17 mg/dL Normal 7-18 [facility] Comment on above: Performed By: #### L 100.0100, L3890.6200, L500.4050, L3890.6300, L501.0900, L801.1549, L400.2010, L4500.0100, L3890.6100 #### [facility] [address] [place], [address] EXAGENon 07-04-2024 EXAGEN MAILED SPECIMEN Normal [facility] Comment on above: Performed By: #### L 801.1549 #### [facility] [address] [place], [place], [id number] [facility] Normal [facility] Comment on above: Order Comment: NEEDE D ON A SEPARATE REQUESITION Result Comment: NEED ED ON A SEPARATE REQUESITION Performed By: #### L 100.0100, L3890.6200, L500.4050, L3890.6300, L501.0900, L801.1549, L400.2010, L4500.0100, L3890.6100 #### [facility] [address] [place], [address] Hepatitis B Surface Antibody on 07-04-2024 HEP B Surf Ab Reactive Normal [facility] Comment on above: Result Comment: Non Reactive: Inconsistent with immunity less than <10 mIU/mL Reactive: Consistent with immunity greater than or equal to 10 mIU/mL Performed By: #### L 100.0100, L3890.6200, L500.4050, L3890.6300, L501.0900, L801.1549, L400.2010, L4500.0100, L3890.6100 #### [facility] [address] [place], [address] Hepatitis B Surface Antigeno n 07-04-2024 HEP B Surf Ag Non-Reactive Normal Nonreactive [facility] Comment on above: Performed By: #### L 100.0100, L3890.6200, L500.4050, L3890.6300, L501.0900, L801.1549, L400.2010, L4500.0100, L3890.6100 #### [facility] [address] [place], [address] Hepatitis C Antibodyon 07-04 Hepatitis C AB Non-Reactive Normal Nonreactive [facility] Comment on above: Result Comment: Non Reactive: < 0.8 Equivocal: >/= 0.8 to < 1.0 Reactive: >/= 1.0 The CDC requires that a reactive/equivocal HCV antibody result be sent out for confirmation. HCV Quant by PCR testing. Performed By: #### L 500.4100, L500.2500 #### [facility] [address] [place], [address] Lipid Profileon 07-04-2024 HDL Normal [facility] Comment on above: Result Comment: NOT CORRECT PT The drugs N-Acetylcysteine and Metamizole may falsely depress this assay. Performed By: #### L 500.4100, L500.2500 #### [facility] [address] [place], [address] TRIG Normal [facility] Comment on above: Result Comment: NOT CORRECT PT The drugs N-Acetylcysteine and Metamizole may falsely depress this assay. Performed By: #### L 500.4100, L500.2500 #### [facility] [address] [place], [address] CHOL Normal 200 [facility] Comment on above: Result Comment: NOT CORRECT PT Performed By: #### L 500.4100, L500.2500 #### [facility] [address] [place], [address] LDL Normal 0-130 [facility] Comment on above: Result Comment: NOT CORRECT PT Performed By: #### L 500.4100, L500.2500 #### [facility] [address] [place], [address] VLDL Normal 5-40 [facility] Comment on above: Result Comment: NOT CORRECT PT Performed By: #### L 500.4100, L500.2500 #### [facility] [address] [place], [address] Protein+Creatinine Ratio,Uri neon 07-04-2024 PROT:CRE RATIO 76 mg/g CRE Normal 0-200 [facility] Comment on above: Performed By: #### L 100.0100, L3890.6200, L500.4050, L3890.6300, L501.0900, L801.1549, L400.2010, L4500.0100, L3890.6100 #### [facility] [address] [place], [address] Protein (U) [Mass/Vol] 7.7 mg/dL Normal <11.9 [facility] Comment on above: Performed By: #### L 100.0100, L3890.6200, L500.4050, L3890.6300, L501.0900, L801.1549, L400.2010, L4500.0100, L3890.6100 #### [facility] [address] [place], [address] UR CREAT 101.00 mg/dL Normal NO RANGE EST. [facility] Comment on above: Performed By: #### L 100.0100, L3890.6200, L500.4050, L3890.6300, L501.0900, L801.1549, L400.2010, L4500.0100, L3890.6100 #### [facility] [address] [place], [address] Urinalysis, Routine (Dipstic k)on 07-04-2024 BILIRUBIN URINE Negative Normal Negative [facility] Comment on above: Order Comment: Urine , Random Performed By: #### L 100.0100, L3890.6200, L500.4050, L3890.6300, L501.0900, L801.1549, L400.2010, L4500.0100, L3890.6100 #### [facility] [address] [place], [address] Clarity (U) Sl. Cloudy Normal Clear [facility] Comment on above: Order Comment: Urine , Random Performed By: #### L 100.0100, L3890.6200, L500.4050, L3890.6300, L501.0900, L801.1549, L400.2010, L4500.0100, L3890.6100 #### [facility] [address] [place], [address] Color (U) Yellow Normal Yellow [facility] Comment on above: Order Comment: Urine , Random Performed By: #### L 100.0100, L3890.6200, L500.4050, L3890.6300, L501.0900, L801.1549, L400.2010, L4500.0100, L3890.6100 #### [facility] [address] [place], [address] GLUCOSE, UR Normal Normal Normal [facility] Comment on above: Order Comment: Urine , Random Performed By: #### L 100.0100, L3890.6200, L500.4050, L3890.6300, L501.0900, L801.1549, L400.2010, L4500.0100, L3890.6100 #### [facility] [address] [place], [address] KETONE UR Negative Normal Negative [facility] Comment on above: Order Comment: Urine , Random Performed By: #### L 100.0100, L3890.6200, L500.4050, L3890.6300, L501.0900, L801.1549, L400.2010, L4500.0100, L3890.6100 #### [facility] [address] [place], [place], [address] LEUK ESTERASE 25 /ul Abnormal Negative [facility] Comment on above: Order Comment: Urine , Random Performed By: #### L 100.0100, L3890.6200, L500.4050, L3890.6300, L501.0900, L801.1549, L400.2010, L4500.0100, L3890.6100 #### [facility] [address] [place], [place], [address] [phone] Nitrite Ql (U) Negative Normal Negative [facility] Comment on above: Order Comment: Urine , Random Performed By: #### L 100.0100, L3890.6200, L500.4050, L3890.6300, L501.0900, L801.1549, L400.2010, L4500.0100, L3890.6100 #### [facility] [address] [place], [place], [id number] [phone] OCCULT BLOOD-UR Negative Normal Negative [facility] Comment on above: Order Comment: Urine , Random Performed By: #### L 100.0100, L3890.6200, L500.4050, L3890.6300, L501.0900, L801.1549, L400.2010, L4500.0100, L3890.6100 #### [facility] [address] [place], [place], [address] pH UR 6.0 Normal 5.0 - 8.0 [facility] Comment on above: Order Comment: Urine , Random Performed By: #### L 100.0100, L3890.6200, L500.4050, L3890.6300, L501.0900, L801.1549, L400.2010, L4500.0100, L3890.6100 #### [facility] [address] [place], [address] PROT DIPSTX 15 mg/dl Abnormal Negative [facility] Comment on above: Order Comment: Urine , Random Performed By: #### L 100.0100, L3890.6200, L500.4050, L3890.6300, L501.0900, L801.1549, L400.2010, L4500.0100, L3890.6100 #### [facility] [address] [place], [place], [address] SP.GR. DIPSTX 1.020 Normal 1.002-1.030 [facility] Comment on above: Order Comment: Urine , Random Performed By: #### L 100.0100, L3890.6200, L500.4050, L3890.6300, L501.0900, L801.1549, L400.2010, L4500.0100, L3890.6100 #### [facility] [address] [place], [address] UROBILI Normal Normal Normal [facility] Comment on above: Order Comment: Urine , Random Performed By: #### L 100.0100, L3890.6200, L500.4050, L3890.6300, L501.0900, L801.1549, L400.2010, L4500.0100, L3890.6100 #### [facility] [address] [place], [place], [address] Jacky 04-12-2024 ALT [Catalytic activity/Vol] 21 U/L Normal 4-35 [facility] Comment on above: Performed By: #### 4 [id number], [id number], [id number], [id number], [id number], 86019473, 93687133, 96033875, 85698950, 75327297, 82410076, 14343787, 13166520, 77084610, 68381331 #### [place] [address] [place] ANTI-MPO ABSon 04-12-2024 ANTI-MPO ANTIBODIES <0.2 Normal 0.0-0.9 [facility] Comment on above: Order Comment: Perfo rmed at: 01 - [facility] [address] [id number] Technical Business Analyst: Markel Fabian MD, Phone: [phone] Performed By: #### L [id number] #### [facility] ANTI-PR3 ABSon 04-12-2024 ANTI-PR3 ANTIBODIES <0.2 Normal 0.0-0.9 [facility] Comment on above: Order Comment: Perfo rmed at: 01 - [facility] [address] [id number] Technical Business Analyst: Markel Fabian MD, Phone: [phone] Performed By: #### L [id number] #### [facility] [address] [place] Zayra 04-12-2024 AST [Catalytic activity/Vol] 24 U/L Normal 3-47 [facility] Comment on above: Performed By: #### 4 [id number], [id number] #### [address] [address] [place] BETA 2 GLYCOPROTEIN 1 AB IGG AND IGMon 04-12-2024 B2 GLYCOPROT I IGG AB <9 Normal 0-20 [facility] Comment on above: Order Comment: Perfo rmed at: 01 - [facility] [address] [id number] Director: Parish Lyons PhD, Phone: [phone] Result Comment: The reference interval reflects a 3SD or 99th percentile interval, which is thought to represent a potentially clinically significant result in accordance with the International Consensus Statement on the classification criteria for definitive antiphospholipid syndrome (APS). J Thromb Haem 2006;4:295-306. Performed By: #### 4 [id number], [id number] #### [facility] [address] [place] [address] B2 GLYCOPROT I IGM AB 43 GPI IgM units High 0-32 [facility] Comment on above: Order Comment: Perfo rmed at: 01 - [facility] [id number] Director: Parish Lyons PhD, Phone: [phone] Result Comment: The reference interval reflects a 3SD or 99th percentile interval, which is thought to represent a potentially clinically significant result in accordance with the International Consensus Statement on the classification criteria for definitive antiphospholipid syndrome (APS). J Thromb Haem 2006;4:295-306. Performed By: #### 4 [id number], [id number] #### [address] BUNon 04-12-2024 Urea nitrogen [Mass/Vol] 17 mg/dL Normal 8- [facility] Comment on above: Performed By: #### 4 [id number], [id number] #### [address] C-REACTIVE PROTEIN (INFLAMMA TORY)on 04-12-2024 CRP [Mass/Vol] mg/L Normal <=9.9 [facility] Comment on above: Performed By: #### 4 [id number], [id number], [id number], 36530665, 33173226, 54204681, 30088839, 27832298, 99090064, 56658389, 37234065, 91404195, 26875736, 32319433, 14040652 #### [address] C3 COMPLEMENTon 04-12-2024 C3 COMPLEMENT 123.0 mg/dL Normal 88.0-165.0 [facility] Comment on above: Performed By: #### 4 [id number], [id number] #### [facility] [address] [place] [address] C4 COMPLEMENTon 04-12-2024 C4 COMPLEMENT 18.3 mg/dL Normal 14.0-44.0 [facility] Comment on above: Performed By: #### 4 [id number], [id number] #### [address] CARDIOLIPIN AB IGG AND IGMon 04-12-2024 CARDIOLIPIN IGG <9 Normal 0-14 [facility] Comment on above: Order Comment: Perfo rmed at: 01 - [facility] Director: Parish Lyons PhD, Phone: [phone] Result Comment: Nega tive: <15 Indeterminate: 15 - 20 Low-Med Positive: >20 - 80 High Positive: >80 Performed By: #### 4 [id number], [id number] #### [address] CARDIOLIPIN IGM 47 MPL U/mL High 0-12 [facility] Comment on above: Order Comment: Perfo rmed at: 01 - [facility] [id number] Director: Parish Lyons PhD, Phone: [phone] Result Comment: Nega tive: <13 Indeterminate: 13 - 20 Low-Med Positive: >20 - 80 High Positive: >80 Performed By: #### 4 [id number], [id number] #### [address] CBCon 04-12-2024 Erythrocyte distribution width (RBC) [Ratio] 12.4 % Normal 11.5-14.5 [facility] Comment on above: Performed By: #### 4 [id number], [id number] #### [address] Hematocrit (Bld) [Volume fraction] 45.5 % Normal 33.6-46.8 [facility] Comment on above: Performed By: #### 4 [id number], [id number] #### [address] Hemoglobin (Bld) [Mass/Vol] 15.1 g/dL Normal 11.7-15.8 [facility] Comment on above: Performed By: #### 4 [id number], [id number] #### [address] MCH (RBC) [Entitic mass] 29.0 pg Normal 27.5-32.3 [facility] Comment on above: Performed By: #### 4 [id number], [id number] #### [address] MCHC (RBC) [Mass/Vol] 33.2 g/dL Normal 30.7-35.5 [facility] Comment on above: Performed By: #### 4 [id number], [id number] #### [place] [id number] [address] MCV (RBC) [Entitic vol] 87.3 fL Normal 80.2-99 [facility] Comment on above: Performed By: #### 4 [id number], [id number] #### [address] PLATELET COUNT 391 x10*3/uL Normal 150-400 [facility] Comment on above: Performed By: #### 4 [id number], [id number] #### [address] RED BLOOD CELL COUNT 5.21 x10*6/uL High 3.60-5.20 [facility] Comment on above: Performed By: #### [id number] #### [address] WHITE BLOOD CELLS 8.5 x10*3/uL Normal 4.3-10.3 [facility] Comment on above: Performed By: #### [id number] #### [place] [id number] [address] CCP ANTIBODIES IGG/IGAon CCP IGG/IGA ABS 6 units Normal 0-19 [facility] Comment on above: Order Comment: Perfo rmed at: 01 - Lab[address] [id number] Technical Business Analyst: Parish Lyons PhD, Phone: [phone] Result Comment: Nega tive <20 Weak positive 20 - 39 Moderate positive 40 - 59 Strong positive >59 Performed By: #### 4 [id number] #### [facility] [address] [place] [address] [place] CENTROMERE IGGon 04-12-2024 CENTROMERE B ABS <0.2 Normal 0.0-0.9 [facility] Comment on above: Order Comment: Perfo rmed at: 01 - [facility] [id number] [place], [place] [id number] Director: Parish Lyons PhD, Phone: [phone] Performed By: #### 4 [id number], [id number] #### [place] [address] [place] CKon 04-12-2024 CK [Catalytic activity/Vol] 39 U/L Normal 0-164 [facility] Comment on above: Performed By: #### 4 [id number], [id number], [id number], [id number], [id number], [id number], [id number], [id number], [id number], [id number], [id number], [id number], [id number], [id number], [id number] #### [address] CREATININE, SERUMon 04-12-20 Creatinine [Mass/Vol] 0.92 mg/dL Normal 0.52-1.04 [facility] Comment on above: Performed By: #### 4 [id number], [id number] #### [address] GLOMERULAR FILTRATION RATE ML/MIN/1.73 SQ M.PREDICTED 74.1 mL/min/1.73m*2 Normal >=60.0 [facility] Comment on above: Result Comment: eGFR calculation based on the Chronic Kidney Disease Epidemiology Collaboration (CKD-EPI) equation refit without adjustment for race. Categories in Chronic Kidney Disease (CKD) Category: GFR(mL/min/1.73m^2) Interpretation: G1* 90 or greater Normal or high G2* 60-89 Mild decrease G3a 45-59 Mild to moderate decrease G3b 30-44 Moderate to severe decrease G4 15-29 Severe decrease G5 14 or less Kidney failure *G1&G2: In the absence of evidence of kidney damage, neither GFR category G1 nor G2 fulfill the criteria for CKD Kidney Int Suppl.2013;3:1-150 Performed By: #### 4 [id number], [id number] #### [place] [address] [place] DS DNA ANTIBODY IGG IFAon DSDNA CRITHIDIA LUCILIAE IFA Negative Normal Negative [facility] Comment on above: Order Comment: Perfo rmed at: 01 - [facility] Director: Parish Lyons PhD, Phone: [phone] Performed By: #### 4 [id number], [id number] #### [place] [address] [place] EXTRACTABLE NUCLEAR ANTIGEN ABon 04-12-2024 PHYSICS DEPARTMENT CHAIR ABS <0.2 Normal 0.0-0.[address] [facility] Comment on above: Order Comment: Perfo rmed at: 01 - [facility] [address] Director: Parish Lyons PhD, Phone: [phone] Performed By: #### 4 [id number], [id number] #### [place] [address] [place] SJOGRENS SSA AB <0.2 Normal 0.0-0.[address] [facility] Comment on above: Order Comment: Perfo rmed at: 01 - [facility] Director: Parish Lyons PhD, Phone: [phone] Performed By: #### 4 [id number], [id number] #### [place] [address] [place] SJOGRENS SSB AB <0.2 Normal 0.0-0.[address] [facility] Comment on above: Order Comment: Perfo rmed at: 01 - [facility] [address] Director: Parish Lyons PhD, Phone: [phone] Performed By: #### 4 [id number], [id number] #### [place] [address] [place] TANG ABS <0.2 Normal 0.0-0.9 [facility] Comment on above: Order Comment: Perfo rmed at: 01 - [facility] [address] [id number] Director: Parish Lyons PhD, Phone: [phone] Performed By: #### 4 [id number], [id number] #### [address] [address] [place] [address] HEPATITIS B SURFACE ANTIGENo n 04-12-2024 HEP B SURF AG Non-Reactive Normal [facility] Comment on above: Performed By: #### 4 [id number], [id number] #### [address] HEPATITIS C ANTIBODYon 04-12 HEPATITIS C ANTIBODY Non-Reactive Normal Nonreactive, Indeterminate [facility] Comment on above: Performed By: #### 4 [id number], [id number] #### [address] LUPUS ANTICOAGULANTon 2023 aPTT Coag (Bld) [Time] 41.5 s Normal 0.0-43.5 [facility] Comment on above: Order Comment: Perfo rmed at: 01 - [facility] [address] [id number] Technical Business Analyst: Markel Fabian MD, Phone: [phone] Performed By: #### 4 [id number] #### [facility] DRVVT 34.7 sec Normal 0.0-47.0 [facility] Comment on above: Order Comment: Perfo rmed at: 01 - [facility] [address] [id number] Technical Business Analyst: Markel Fabian MD, Phone: [phone] Performed By: #### 4 [id number] #### [facility] [address] [place] [address] LUPUS RFX INTERP Comment: Normal [facility] Comment on above: Order Comment: Perfo rmed at: 01 - [facility] [address] [id number] Technical Business Analyst: Markel Fabian MD, Phone: [phone] Result Comment: No l upus anticoagulant was detected. Performed By: #### 4 [id number] #### [facility] [address] [place] [address] LAB TESTon 04-12-2024 TEST RESULT COMMENT [facility] Comment on above: Order Comment: Perfo rmed At: [address] [id number] Vincent PhD Ph:[phone] Result Comment: Test Ordered: [id number] JOSE J by IFA Rfx Titer/Pattern JOSE J by IFA Rfx Titer/Pattern Negative 01 Negative <1:80 Borderline 1:80 Positive >1:80 ICAP nomenclature: AC-0 For more information about Hep-2 cell patterns use ANApatterns.org, the official website for the International Consensus on Antinuclear Antibody (JOSE J) Patterns (ICAP). Performed By: #### 4 [id number], [id number] #### [facility] [address] [place] [address] QUANTIFERON-TB GOLD PLUS, 4- TUBEon 04-12-2024 QFT CRITERIA Comment [facility] Comment on above: Order Comment: Perfo rmed at: 01 - [facility] [address] [id number] Technical Business Analyst: Parish Lyons PhD, Phone: [phone] Result Comment: Reji tiFERON-TB Gold Plus is a qualitative indirect test for M tuberculosis infection (including disease) and is intended for use in conjunction with risk assessment, radiography, and other medical and diagnostic evaluations. The QuantiFERON-TB Gold Plus result is determined by subtracting the Nil value from either TB antigen (Ag) value. The Mitogen tube serves as a control for the test. Performed By: #### 3 [id number] #### [facility] [address] [place] [address] QFT MITOGEN VALUE >10.00 [facility] Comment on above: Order Comment: Perfo rmed at: 01 - [facility] [address] [id number] Technical Business Analyst: Parish Lyons PhD, Phone: [phone] Performed By: #### 3 [id number] #### [facility] [address] [place] [address] [place] QFT NIL VALUE 0.51 IU/mL [facility] Comment on above: Order Comment: Perfo rmed at: 01 - [facility] [place] [address] Technical Business Analyst: Parish Lyons PhD, Phone: [phone] Performed By: #### 3 [id number] #### [facility] [address] [place] [address] [place] QFT TB1 AG VALUE 0.01 IU/mL [facility] Comment on above: Order Comment: Perfo rmed at: 01 - [facility] [place] [address] Technical Business Analyst: Parish Lyons PhD, Phone: [phone] Performed By: #### 3 [id number] #### [facility] [address] [place] [address] [place] QFT TB2 AG VALUE 0.00 IU/mL [facility] Comment on above: Order Comment: Perfo rmed at: 01 - [facility] [place] [address] Technical Business Analyst: Parish Lyons PhD, Phone: [phone] Performed By: #### 3 [id number] #### [facility] [address] [place] [address] [place] QUANTIFERON-TB GOLD PLUS Negative [place] Negative [facility] Comment on above: Order Comment: Perfo rmed at: 01 - [place] [address] Technical Business Analyst: Parish Loyns PhD, Phone: [phone] Result Comment: No r esponse to M tuberculosis antigens detected. Infection with M tuberculosis is unlikely, but high risk individuals should be considered for additional testing (ATS/IDSA/CDC Clinical Practice Guidelines, 2017). The reference range is an Antigen minus Nil result of <0.35 IU/mL. The specimen received for QuantiFERON testing was incubated by the ordering institution. Specific procedures outlined in our Directory of Services and in the package insert for the QuantiFERON Gold (In Tube) test must be followed to enable for proper stimulation of cells for the production of interferon gamma. Chemiluminescence immunoassay methodology Performed By: #### 3 [id number] #### [facility] [address] [place] [address] [place] RHEUMATOID FACTORon 04-12-20 24 RHEUMATOID FACTOR <8.6 Normal <=12.0 [facility] Comment on above: Performed By: #### 4 [id number], [id number] #### [address] SCLERODERMA ANTIBODY IGGon SCL-70 ABS <0.2 Normal 0.0-0.9 [facility] Comment on above: Order Comment: Perfo rmed at: 01 - [facility] [place] [id number] Director: Parish Lyons PhD, Phone: [phone] Performed By: #### 4 [id number], [id number] #### [place] [address] [place] SEDIMENTATION RATEon 024 SED RATE 6 mm/hr Normal 0-30 [facility] Comment on above: Performed By: #### 4 [id number], [id number] #### [place] [address] [place] T4, FREEon 04-12-2024 Free T4 [Mass/Vol] 1.04 ng/dL Normal 0.78-2.19 [facility] Comment on above: Performed By: #### 4 [id number], [id number] #### [address] TSHon 04-12-2024 TSH 1.290 uIU/mL Normal 0.465-4.680 [facility] Comment on above: Performed By: #### 4 0387020, [id number] #### [address] URIC ACIDon 04-12-2024 Urate [Mass/Vol] 4.3 mg/dL Normal 2.0-7.0 [facility] Comment on above: Performed By: #### 4 7350138, [id number] #### [address] URINALYSIS WITH REFLEX CULTU REon 04-12-2024 Appearance (U) Clear Normal [facility] Comment on above: Performed By: #### 4 [id number], [id number] #### [address] BILIRUBIN SEMI QUANT Negative Normal Negative [facility] Comment on above: Performed By: #### 4 3951736, [id number] #### [address] Color (U) Light Yellow Normal [facility] Comment on above: Performed By: #### 4 [id number], [id number] #### [address] Glucose Ql (U) Normal Normal Normal [facility] Comment on above: Performed By: #### 4 5970127, [id number] #### [address] Ketones Ql (U) Negative Normal Negative [facility] Comment on above: Performed By: #### 4 1077054, [id number] #### [address] LEUKOESTERASE SQ Negative Normal Negative [facility] Comment on above: Performed By: #### 4 [id number], [id number] #### [address] Nitrite Ql (U) Negative Normal Negative [facility] Comment on above: Performed By: #### 4 5361257, [id number] #### [address] OCCULT BLD SEMI QUANT Negative Normal Negative [facility] Comment on above: Performed By: #### 4 1215902, [id number] #### [address] PH, URINE 6.[address] [facility] Comment on above: Performed By: #### 4 1438614, [id number] #### [address] Protein Ql (U) Negative Normal Negative [facility] Comment on above: Performed By: #### 4 7411229, [id number] #### [address] RBC LM.HPF (Urine sed) [#/Area] /[HPF] Normal <=5 [facility] Comment on above: Performed By: #### 4 [id number], [id number] #### [address] SPECIFIC GRAVITY, URINE 1.016 Normal [facility] Comment on above: Performed By: #### 4 [id number], [id number] #### [address] SQUAMOUS EPI CELLS 2 /LPF Normal [facility] Comment on above: Performed By: #### 4 [id number], [id number] #### [address] UROBILINOGEN UA <2 Normal <2.0 [facility] Comment on above: Performed By: #### 4 9457423, 56555510 #### [address] WBC LM.HPF (Urine sed) [#/Area] /[HPF] Normal <=5 [facility] Comment on above: Performed By: #### 4 0166092, [id number] #### [address] VITAMIN D 25 HYDROXYon 04-12 VITAMIN D 25 HYDROXY 78.5 ng/mL Normal [facility] Comment on above: Result Comment: Refe rence Range: Deficiency: <20 ng/mL Insufficiency: 21-29 ng/mL Optimal Level: >=30 ng/mL Possible Toxicity: >80 ng/mL 80 ng/mL is the lowest reported level associated with toxicity in patients without primary hyperthyroidism who have normal renal function. Performed By: #### 4 [id number], [id number] #### [address] .GFRon 04-04-2024 GFR >60 Normal [facility] Comment on above: Result Comment: GFR Population mean for , Non- Americans Ages 20-29 = 116 mL/min/1.73 sq.m. Ages 30-39 = 107 mL/min/1.73 sq.m. Ages 40-49 = 99 mL/min/1.73 sq.m. Ages 50-59 = 93 mL/min/1.73 sq.m. Ages 60-69 = 85 mL/min/1.73 sq.m. Ages 70+ = 75 mL/min/1.73 sq.m. Chronic Kidney Disease: Less than 60 mL/min/1.73 square meters End Stage Renal Disease: Less than 15 mL/min/1.73 square meters Performed By: #### C MP, GFR #### [address] [address] GFR Non- >60 Normal [facility] Comment on above: Result Comment: GFR Population mean for , Non- Americans Ages 20-29 = 116 mL/min/1.73 sq.m. Ages 30-39 = 107 mL/min/1.73 sq.m. Ages 40-49 = 99 mL/min/1.73 sq.m. Ages 50-59 = 93 mL/min/1.73 sq.m. Ages 60-69 = 85 mL/min/1.73 sq.m. Ages 70+ = 75 mL/min/1.73 sq.m. Chronic Kidney Disease: Less than 60 mL/min/1.73 square meters End Stage Renal Disease: Less than 15 mL/min/1.73 square meters Performed By: #### C MP, GFR #### [address] [address] [facility] Albumin Level 3.8 G/dL Normal 3.2-4.8 [facility] Comment on above: Performed By: #### C MP, GFR #### [address] [address] Albumin/Globulin [Mass ratio] 1.2 {ratio} Normal 0.9-1.6 [facility] Comment on above: Performed By: #### C MP, GFR #### [address] [address] ALP [Catalytic activity/Vol] 99 U/L Normal 38-126 [facility] Comment on above: Performed By: #### C MP, GFR #### [address] [address] ALT [Catalytic activity/Vol] 22 U/L Normal 10-49 [facility] Comment on above: Performed By: #### C MP, GFR #### [address] [address] AST [Catalytic activity/Vol] 24 U/L Normal 8-34 [facility] Comment on above: Performed By: #### C MP, GFR #### [address] [address] Bili Total 0.20 mg/dL Normal 0.20-1.20 [facility] Comment on above: Result Comment: Use of this assay is not recommended for patients undergoing treatment with eltrombopag due to the potential for falsely elevated results. Performed By: #### C MP, GFR #### [place] [id number] BUN/Creatinine Ratio 21.2 ratio Normal 10.0-22.0 [facility] Comment on above: Performed By: #### C MP, GFR #### [address] [address] Calcium [Mass/Vol] 9.9 mg/dL Normal 8.7-10.4 [facility] Comment on above: Performed By: #### C MP, GFR #### [address] [address] Chloride [Moles/Vol] 106 mmol/L Normal 98-110 [facility] Comment on above: Performed By: #### C MP, GFR #### [address] [address] CO2 [Moles/Vol] 29 mmol/L Normal 22-32 [facility] Comment on above: Performed By: #### C MP, GFR #### [address] [address] Creatinine [Mass/Vol] 0.80 mg/dL Normal 0.50-1.20 [facility] Comment on above: Result Comment: Test ing performed on [email or web address] analyzer using enzymatic creatinine methodology. Performed By: #### C MP, GFR #### [address] [address] Electrolyte Balance 6.0 mEq/L Normal 4.0-15.0 [facility] Comment on above: Performed By: #### C MP, GFR #### [address] [address] Globulin 3.1 G/dL Normal 1.5-3.8 [facility] Comment on above: Performed By: #### C MP, GFR #### [address] [address] Glucose [Mass/Vol] 86 mg/dL Normal 70-110 [facility] Comment on above: Performed By: #### C MP, GFR #### [address] [address] Potassium [Moles/Vol] 4.3 mmol/L Normal 3.5-5.0 [facility] Comment on above: Performed By: #### C MP, GFR #### [address] [address] Sodium [Moles/Vol] 141 mmol/L Normal 136-145 [facility] Comment on above: Performed By: #### C MP, GFR #### [address] [address] Total Protein 6.9 G/dL Normal 5.7-8.2 [facility] Comment on above: Result Comment: No te - New Reference Range in effect 20 Performed By: #### C MP, GFR #### [address] [address] Urea nitrogen [Mass/Vol] 17.0 mg/dL Normal 8.0-22.0 [facility] Comment on above: Performed By: #### C MP, GFR #### [address] [address] [employer] Cytology Reporton Non-[employer] Cytology Report . Pathology Reports Accession: Collected Date/Time: Received Date/Time: Pathologist: [id number] 03/08/2024 11:58 EDT 03/08/2024 12:18 EDT MD JORDAN GONZALEZ Non[employer] Cytology Report CLINICAL INFORMATION: lymphadenopathy, h/o cervical ca DIAGNOSTIC CATEGORY: NEGATIVE FOR MALIGNANCY. SPECIMEN: Bronchial Washing, RUL GROSS DESCRIPTION: # of Blocks: 1 # of Monolayers: 1 Volume (ml) 15 Color: fresh cloudy mucoid red Electronically Signed by Pathology Report verified by [facility] Screened by: CM REYES Electronically signed by JORDAN GONZALEZ MD Sign-Out Date: 03/09/2024 09:24 Performing Lab: [address] Pathology Dept Disclaimer If ancillary studies were utilized, the following Laboratory Developed Test (LDT) disclaimer will apply: Under CLIA requirements, [facility] is qualified to perform high complexity testing. For all ancillary stains, positive and negative controls stain appropriately. Performance characteristics of immunohistochemical and chromogenic in-situ hybridization tests have been determined by [facility]. These tests are used for clinical purposes, They should not be regarded as investigational or for research. Normal [facility] Non[employer] Cytology Report . Pathology Reports Accession: Collected Date/Time: Received Date/Time: Pathologist: [id number] 03/08/2024 11:58 EDT 03/08/2024 12:14 EDT ANTONY HURD MD Non[employer] Cytology Report CLINICAL INFORMATION: lymphadenopathy, h/o cervical ca DIAGNOSTIC CATEGORY: NEGATIVE FOR MALIGNANCY. Adequate lymph node specimen. SPECIMEN: TBN - Station 7 GROSS DESCRIPTION: # of Blocks: 1 Volume (ml) 30 Color: fixed clear light red needle rinse in cytolyt Electronically Signed by Pathology Report verified by [facility] Screened by: CM REYES Electronically signed by JORDAN GONZALEZ MD Sign-Out Date: 03/09/2024 09:24 Performing Lab: [facility], [address] [place] [address] Pathology Dept Disclaimer If ancillary studies were utilized, the following Laboratory Developed Test (LDT) disclaimer will apply: Under CLIA requirements, [facility] is qualified to perform high complexity testing. For all ancillary stains, positive and negative controls stain appropriately. Performance characteristics of immunohistochemical and chromogenic in-situ hybridization tests have been determined by [facility]. These tests are used for clinical purposes, They should not be regarded as investigational or for research. Normal [facility] Non-[employer] Cytology Report . Pathology Reports Accession: Collected Date/Time: Received Date/Time: Pathologist: [id number] 03/08/2024 11:58 EDT 03/08/2024 12:13 EDT MD JORDAN GONZALEZ [employer] Cytology Report CLINICAL INFORMATION: lymphadenopathy, h/o cervical ca DIAGNOSTIC CATEGORY: NEGATIVE FOR MALIGNANCY. Scant lymphocytes present. SPECIMEN: TBN - 11R GROSS DESCRIPTION: # of Blocks: 1 Volume (ml) 30 Color: fixed clear light red needle rinse in cytolyt Electronically Signed by Pathology Report verified by [facility] Screened by: CM RM Electronically signed by JORDAN GONZALEZ MD Sign-Out Date: 03/09/2024 09:23 Performing Lab: [address] Pathology Dept Disclaimer If ancillary studies were utilized, the following Laboratory Developed Test (LDT) disclaimer will apply: Under CLIA requirements, [facility] is qualified to perform high complexity testing. For all ancillary stains, positive and negative controls stain appropriately. Performance characteristics of immunohistochemical and chromogenic in-situ hybridization tests have been determined by [facility]. These tests are used for clinical purposes, They should not be regarded as investigational or for research. Normal [facility] 01-27-2024 Fr Wade Lt Chains 15.1 mg/L Normal 3.3-19.4 [facility] ([place]) Comment on above: Performed By: #### A JOSIAH, [id number], IFES, SPE, CK, JOSE J, IMMUN #### [place] [address] Fr Lambda Lt Chains 14.2 mg/L Normal 5.7-26.3 [facility] ([place]) Comment on above: Performed By: #### A JOSIAH, [id number], IFES, SPE, CK, JOSE J, IMMUN #### [place] [address] Wade/Lambda Ratio 1.06 Normal 0.26-1.65 [facility] ([place]) Comment on above: Result Comment: Perf ormed At: [facility] [address] [id number] Serena Lugo PhD Ph:[phone] Performed By: #### A JOSIAH, [id number], IFES, SPE, CK, JOSE J, IMMUN #### [address] [address] .ANATon 01-26-2024 JOSE J Pattern 1 Homogeneous Normal [facility] ([place]) Comment on above: Result Comment: At A [facility], an JOSE J titer of less than 160 is not considered suggestive of significant rheumatoid disease. If clinical suspicion is high, suggest repeat testing in 1-2 months. Performed By: #### A JOSIAH, 304559, IFES, SPE, CK, JOSE J, IMMUN #### [place] [address] JOSE J Titer 1 80 Normal [facility] ([place]) Comment on above: Performed By: #### A JOSIAH, 905195, IFES, SPE, CK, JOSE J, IMMUN #### [place] [address] ANAon 01-26-2024 JOSE J See Titer Normal Neg 40 [facility] ([place]) Comment on above: Result Comment: JOSE J Screen and Titer methodology is an immunofluorescent technique utilizing Hep2 Substrate. Performed By: #### A JOSIAH, [id number], IFES, SPE, CK, JOSE J, IMMUN #### [place] [id number] IFESon 01-26-2024 IFES Interpretation Immunofixation electrophoresis of serum shows the presence of only polyclonal immunoglobulins (IgG,A,M,Wade and Lambda), No monoclonal protein detected. Normal [facility] ([place]) Comment on above: Result Comment: Elec tronically Signed by: ANTONY HURD 01/26/2024 15:43 EDT Performed By: #### A JOSIAH, 177113, IFES, SPE, CK, JOSE J, IMMUN #### [place] [address] SPEon 01-26-2024 SPE Interpretation Normal serum protein electrophoresis pattern. No abnormality detected. Normal [facility] ([place]) Comment on above: Result Comment: Elec tronically Signed by: ANTONY HURD 01/26/2024 15:43 EDT Performed By: #### A JOSIAH, [id number], IFES, SPE, CK, JOSE J, IMMUN #### [address] [address] Albumin 4.0 G/dL Normal 3.3-5.0 [facility] ([place]) Comment on above: Performed By: #### A JOSIAH, 188391, IFES, SPE, CK, JOSE J, IMMUN #### [place] [address] Alpha 1 0.3 G/dL Normal 0.1-0.4 [facility] ([place]) Comment on above: Performed By: #### A JOSIAH, 575371, IFES, SPE, CK, JOSE J, IMMUN #### [place] [address] Alpha 2 1.2 G/dL Normal 0.6-1.2 [facility] ([place]) Comment on above: Performed By: #### A JOSIAH, 970639, IFES, SPE, CK, JOSE J, IMMUN #### [place] [address] Beta 1.0 G/dL Normal 0.6-1.3 [facility] ([place]) Comment on above: Performed By: #### A JOSIAH, 596266, IFES, SPE, CK, JOSE J, IMMUN #### [place] [address] Gamma 1.0 G/dL Normal 0.7-1.6 [facility] ([place]) Comment on above: Performed By: #### A JOSIAH, 163603, IFES, SPE, CK, JOSE J, IMMUN #### [place] [address] CKon 01-25-2024 CK [Catalytic activity/Vol] 56 U/L Normal 7-185 [facility] ([place]) Comment on above: Performed By: #### A JOSIAH, 979795, IFES, SPE, CK, JOSE J, IMMUN #### [place] [address] IMMUNon 01-25-2024 IgA [Mass/Vol] 98 mg/dL Normal 40-350 [facility] ([place]) Comment on above: Result Comment: No te - New Reference Range in effect 20 Performed By: #### A JOSIAH, [id number], IFES, SPE, CK, JOSE J, IMMUN #### [facility] [address] [place] [id number] IgG [Mass/Vol] 866 mg/dL Normal 650-1600 [facility] ([place]) Comment on above: Result Comment: No te - New Reference Range in effect 20 Performed By: #### A JOSIAH, [id number], IFES, SPE, CK, JOSE J, IMMUN #### [facility] [address] [place] [address] [id number] IgM [Mass/Vol] 275 mg/dL Normal 50-300 [facility] ([place]) Comment on above: Result Comment: No te - New Reference Range in effect 20 Performed By: #### A JOSIAH, [id number], IFES, SPE, CK, JOSE J, IMMUN #### [address] [address] SPEon 01-25-2024 Total Protein 7.4 G/dL Normal 5.7-8.2 [facility] ([place]) Comment on above: Result Comment: No te - New Reference Range in effect 20 Performed By: #### A JOSIAH, [id number], IFES, SPE, CK, JOSE J, IMMUN #### [facility] [address] [place] [address] BABESIA RICHY IGG/IGMon 2023 BABESIA MICROTI, IGG < 1:16 Normal < 1:16 [facility] Comment on above: Order Comment: Speci men Type: BLOOD SPECIMENOrdering Facility: [facility] Address: [address] [place] [address] Result Comment: INTE RPRETIVE INFORMATION: Babesia microti Antibody, IgG Less than 1:16 ........ Negative - No significant level of detectable Babesia IgG antibodies. 1:16 .................. Equivocal - Repeat testing in 10-14 days may be helpful. Greater than 1:16 ..... Positive - IgG antibodies to Babesia detected which may indicate a current or previous infection. This test was developed and its performance characteristics determined by [facility]. It has not been cleared or approved by the [place] Food and Drug Administration. This test was performed in a CLIA certified laboratory and is intended for clinical purposes. Performed By: #### C ALANA LIZ [facility] ####[facility] [id number] [place] [address] BABESIA MICROTI, IGM <1:20 Normal <1:20 [facility] Comment on above: Order Comment: Speci men Type: BLOOD SPECIMENOrdering Facility: [facility] Address[facility] [address] [facility] [place] [address] Result Comment: INTE RPRETIVE INFORMATION: Babesia microti Antibody, IgM Less than 1:20 ........ Negative - No significant level of detectable Babesia IgM antibodies. 1:20 .................. Equivocal - Repeat testing in 10-14 days may be helpful. Greater than 1:20 ..... Positive - IgM antibodies to Babesia detected which may indicate a current or recent infection. This test was developed and its performance characteristics determined by [facility]. It has not been cleared or approved by the [place] Food and Drug Administration. This test was performed in a CLIA certified laboratory and is intended for clinical purposes. Performed By: [facility] [address] [place] [address] Eeler: Jamir Pavon MD, PhD CLIA Number: [id number] Performed By: #### C ALANA LIZ [facility] ####[facility] [id number] [place] [address] Bacteria Bld Culton 12-16-19 24 Bacteria identified Cx Nom (Bld) CULTURE, BLOOD: No growth 5 days Normal [facility] Comment on above: Performed By: #### 6 00-7 #### [facility] CLIA [id number] [address] [place] [address] [address] [place] C.BURNETII(Q-FEVER)ABS,IGG/I GM,PH I/II W/RFX TITERon 12-16-2023 C.BURNETII AB IGM PHASE 2 Negative Normal Negative [facility] Comment on above: Order Comment: Jeanne escobar Type: BLOOD SPECIMEN Ordering Facility: [facility] Address: [facility] , [place] [address] Result Comment: Coxiella burnetii (Q-Fever) Antibody IgM, Phase II is negative. No further testing will be performed. INTERPRETIVE INFORMATION: C. burnetii (Q-Fever) Ab, Phase II IgM Acute Q fever is best demonstrated by a four-fold rise in phase II IgG titers when comparing two serum samples collected 3-6 weeks apart, and testing is performed in the same laboratory at the same time. Phase I IgG titers can increase during seroconversion. However, in the case of acute infection, the phase I titer should remain lower than the phase II titer. IgM antibodies to phase II antigens provide ancillary information to IgG titers. Phase II IgM titers develop in the same time period of phase II IgG titers and can persist for over a year. A single phase II IgM positive result on an acute sample represents an early conversion or a false positive; testing of a convalescent serum is necessary. In the absence of an acute sample, a single convalescent serum sample with a phase II IgG titer greater than 1:128 in a patient who has been ill longer than 1 week indicates probable acute Q fever. Chronic Q fever is best demonstrated by a phase I titer greater than the phase II IgG titer. Phase I IgM antibodies may also develop concurrently with phase I IgG antibodies. However, in the absence of a phase I IgG titer, the diagnostic value of a phase I IgM titer is limited. Phase I and phase II IgM and IgG titers may remain elevated for months or years after acute infection or during convalescence. Performed By: [facility] [address] [place] [address] Eeler: Jamir Pavon MD, PhD CLIA Number: [id number] Performed By: #### C ALANA LIZ BMIHAO #### [facility] CLIA [id number] [address] [place] [address] C.BURNETII AB IGM PHASE I Negative Normal Negative [facility] Comment on above: Order Comment: Jeanne escobar Type: BLOOD SPECIMEN [facility]ing Facility: [facility] Address: [facility] [address] , [place] [address] Result Comment: Coxiella burnetii (Q-Fever) Antibody IgM, Phase I is negative. No further testing will be performed. INTERPRETIVE INFORMATION: C. burnetii (Q-Fever) Ab, Phase I IgM Acute Q fever is best demonstrated by a four-fold rise in phase II IgG titers when comparing two serum samples collected 3-6 weeks apart, and testing is performed in the same laboratory at the same time. Phase I IgG titers can increase during seroconversion. However, in the case of acute infection, the phase I titer should remain lower than the phase II titer. IgM antibodies to phase II antigens provide ancillary information to IgG titers. Phase II IgM titers develop in the same time period of phase II IgG titers and can persist for over a year. A single phase II IgM positive result on an acute sample represents an early conversion or a false positive; testing of a convalescent serum is necessary. In the absence of an acute sample, a single convalescent serum sample with a phase II IgG titer greater than 1:128 in a patient who has been ill longer than 1 week indicates probable acute Q fever. Chronic Q fever is best demonstrated by a phase I titer greater than the phase II IgG titer. Phase I IgM antibodies may also develop concurrently with phase I IgG antibodies. However, in the absence of a phase I IgG titer, the diagnostic value of a phase I IgM titer is limited. Phase I and phase II IgM and IgG titers may remain elevated for months or years after acute infection or during convalescence. Performed By: #### C OXALANA Diaz, [facility] #### [facility] [id number] [address] [place] [address] COXIELLA BURNETII IGG, PHASE 1 Negative Normal Negative [facility] Comment on above: Order Comment: Jeanne escobar Type: BLOOD SPECIMEN Ordering Facility: [facility] Address: [address] , [place] [address] Result Comment: INTE RPRETIVE INFORMATION: C. Burnetii Abs, IgG Phase I Screen Acute Q fever is best demonstrated by a four-fold rise in phase II IgG titers when comparing two serum samples collected 3-6 weeks apart, and testing is performed in the same laboratory at the same time. Phase I IgG titers can increase during seroconversion. However, in the case of acute infection, the phase I titer should remain lower than the phase II titer. IgM antibodies to phase II antigens provide ancillary information to IgG titers. Phase II IgM titers develop in the same time period of phase II IgG titers and can persist for over a year. A single phase II IgM positive result on an acute sample represents an early conversion or a false positive; testing of a convalescent serum is necessary. In the absence of an acute sample, a single convalescent serum sample with a phase II IgG titer greater than 1:128 in a patient who has been ill longer than 1 week indicates probable acute Q fever. Chronic Q fever is best demonstrated by a phase I titer greater than the phase II IgG titer. Phase I IgM antibodies may also develop concurrently with phase I IgG antibodies. However, in the absence of a phase I IgG titer, the diagnostic value of a phase I IgM titer is limited. Phase I and phase II IgM and IgG titers may remain elevated for months or years after acute infection or during convalescence. Coxiella burnetii (Q-Fever) Antibody IgG, Phase I is negative. No further testing will be performed. Performed By: #### [facility] #### [facility] [id number] [address] [place] [address] COXIELLA BURNETII IGG, PHASE 2 Negative Normal Negative [facility] Comment on above: Order Comment: Speci men Type: BLOOD SPECIMEN Ordering Facility: [facility] Address: [address] , [place] [address] Result Comment: INTE RPRETIVE INFORMATION: C. Burnetii Abs, IgG Phase II Screen Acute Q fever is best demonstrated by a four-fold rise in phase II IgG titers when comparing two serum samples collected 3-6 weeks apart, and testing is performed in the same laboratory at the same time. Phase I IgG titers can increase during seroconversion. However, in the case of acute infection, the phase I titer should remain lower than the phase II titer. IgM antibodies to phase II antigens provide ancillary information to IgG titers. Phase II IgM titers develop in the same time period of phase II IgG titers and can persist for over a year. A single phase II IgM positive result on an acute sample represents an early conversion or a false positive; testing of a convalescent serum is necessary. In the absence of an acute sample, a single convalescent serum sample with a phase II IgG titer greater than 1:128 in a patient who has been ill longer than 1 week indicates probable acute Q fever. Chronic Q fever is best demonstrated by a phase I titer greater than the phase II IgG titer. Phase I IgM antibodies may also develop concurrently with phase I IgG antibodies. However, in the absence of a phase I IgG titer, the diagnostic value of a phase I IgM titer is limited. Phase I and phase II IgM and IgG titers may remain elevated for months or years after acute infection or during convalescence. Coxiella burnetii (Q-Fever) Antibody IgG, Phase II is negative. No further testing will be performed. Performed By: #### C OXGMR, ALANA, BMIC #### [facility] [id number] [address] [place] [address] CBC W Auto Differential pane l (Bld)on 12-16-2023 Basophils (Bld) [#/Vol] 0.06 10*3/uL Normal <0.11 [facility] Comment on above: Order Comment: Speci men Type: BLOOD SPECIMENOrdering Facility: [facility] Address: [facility] [place] [address] Performed By: #### 5 7021-8 ####[facility] LABCLIA [id number] [place] [address] [place] Basophils/100 WBC (Bld) 0.7 % Normal [facility] Comment on above: Order Comment: Speci men Type: BLOOD SPECIMENOrdering Facility: [facility] Address: [facility] [place] [address] Performed By: #### 5 7021-8 ####[facility] LABCLIA [id number] [place] [address] [place] Differential cell count method Nom (Bld) Auto Normal [facility] Comment on above: Order Comment: Speci men Type: BLOOD SPECIMENOrdering Facility: [facility] Address: [facility] [place] [address] Performed By: #### 5 7021-8 ####[facility] LABCLIA [id number] [place] [address] [place] Eosinophils (Bld) [#/Vol] 0.03 10*3/uL Normal <0.46 [facility] Comment on above: Order Comment: Speci men Type: BLOOD SPECIMENOrdering Facility: [facility] Address: [facility] [place] [address] Performed By: #### 5 7021-8 ####[facility] LABIA [id number] [place] [address] [place] Eosinophils/100 WBC (Bld) 0.3 % Normal [facility] Comment on above: Order Comment: Speci men Type: BLOOD SPECIMENOrdering Facility: [facility] Address: [address] [place] [address] Performed By: #### 5 7021-8 ####[facility] [id number] [place] [address] [place] Erythrocyte distribution width (RBC) [Ratio] 12.4 % Normal 11.5-15.0 [facility] Comment on above: Order Comment: Speci men Type: BLOOD SPECIMENOrdering Facility: [facility] Address: [address] [place], [place] [address] [address] Performed By: #### 5 7021-8 ####[facility] LABIA [id number] [address] [place] Hematocrit (Bld) [Volume fraction] 44.4 % Normal 36.0-46.0 [facility] Comment on above: Order Comment: Speci men Type: BLOOD SPECIMENOrdering Facility: [facility] Address: [facility] [place] [address] Performed By: #### 5 7021-8 ####[facility] LABIA [id number] [place] [address] [place] Hemoglobin (Bld) [Mass/Vol] 14.9 g/dL Normal 11.5-15.5 [facility] Comment on above: Order Comment: Speci men Type: BLOOD SPECIMENOrdering Facility: [facility] Address: [address] [place] [address] Performed By: #### 5 7021-8 ####[facility] LABIA [id number] [place] [address] [place] Immature granulocytes (Bld) [#/Vol] 0.03 10*3/uL Normal <0.10 [facility] Comment on above: Order Comment: Speci men Type: BLOOD SPECIMENOrdering Facility: [facility] Address: [facility] [place] [address] Performed By: #### 5 7021-8 ####[facility] LABCLIA [id number] [place] [address] [place] Immature granulocytes/100 WBC (Bld) 0.3 % Normal [facility] Comment on above: Order Comment: Speci men Type: BLOOD SPECIMENOrdering Facility: [facility] Address: [address] [place] [address] Performed By: #### 5 7021-8 ####[facility] LABIA [id number] [address] [place] Lymphocytes (Bld) [#/Vol] 2.44 10*3/uL Normal 1.00-4.00 [facility] Comment on above: Order Comment: Speci men Type: BLOOD SPECIMENOrdering Facility: [facility] Address: [address] [place] [address] Performed By: #### 5 7021-8 ####[facility] LABIA [id number] [address] Lymphocytes/100 WBC (Bld) 27.3 % Normal [facility] Comment on above: Order Comment: Speci men Type: BLOOD SPECIMENOrdering Facility: [facility] Address: [facility] [place] [address] Performed By: #### 5 7021-8 ####[facility] LABCLIA [id number] [place] [address] [place] MCH (RBC) [Entitic mass] 29.6 pg Normal 26.0-34.0 [facility] Comment on above: Order Comment: Speci men Type: BLOOD SPECIMENOrdering Facility: [facility] Address: [address] [place] [address] Performed By: #### 5 7021-8 ####[facility] LABCLIA [id number] [address] MCHC (RBC) [Mass/Vol] 33.6 g/dL Normal 30.5-36.0 [facility] Comment on above: Order Comment: Speci men Type: BLOOD SPECIMENOrdering Facility: [facility] Address: [address] [place] [address] Performed By: #### 5 7021-8 ####[facility] [id number] [address] MCV (RBC) [Entitic vol] 88.3 fL Normal 80.0-100.0 [facility] Comment on above: Order Comment: Speci men Type: BLOOD SPECIMENOrdering Facility: [facility] Address: [address] [place] [address] Performed By: #### 5 7021-8 ####[facility] [id number] [address] [place] Monocytes (Bld) [#/Vol] 0.45 10*3/uL Normal <0.87 [facility] Comment on above: Order Comment: Speci men Type: BLOOD SPECIMENOrdering Facility: [facility] Address: [address] [place] [address] Performed By: #### 5 7021-8 ####[facility] [id number] [address] Monocytes/100 WBC (Bld) 5.0 % Normal [facility] Comment on above: Order Comment: Speci men Type: BLOOD SPECIMENOrdering Facility: [facility] Address: [address] [place] [address] Performed By: #### 5 7021-8 ####[facility] [id number] [address] [place] Neutrophils (Bld) [#/Vol] 5.92 10*3/uL Normal 1.45-7.50 [facility] Comment on above: Order Comment: Speci men Type: BLOOD SPECIMENOrdering Facility: [facility] Address: [address] [place] [address] Performed By: #### 5 7021-8 ####[facility] LABCLIA [id number] [address] Neutrophils/100 WBC (Bld) 66.4 % Normal [facility] Comment on above: Order Comment: Speci men Type: BLOOD SPECIMENOrdering Facility: [facility] Address: [facility] [place] [address] Performed By: #### 5 7021-8 ####[facility] LABCLIA [id number] [place] [address] [place] Nucleated RBC (Bld) [#/Vol] 10*3/uL Normal <0.01 [facility] Comment on above: Order Comment: Speci men Type: BLOOD SPECIMENOrdering Facility: [facility] Address: [facility] [place] [address] Performed By: #### 5 7021-8 ####[facility] LABIA [id number] [place] [address] [place] Nucleated RBC/100 WBC (Bld) [Ratio] 0.0 /100 WBC Normal [facility] Comment on above: Order Comment: Speci men Type: BLOOD SPECIMENOrdering Facility: [facility] Address: [facility] [place] [address] Performed By: #### 5 7021-8 ####[facility] LABIA [id number] [place] [address] [place] Platelet mean volume (Bld) [Entitic vol] 9.1 fL Normal 9.0-12.7 [facility] Comment on above: Order Comment: Speci men Type: BLOOD SPECIMENOrdering Facility: [facility] Address: [facility] [place] [address] Performed By: #### 5 7021-8 ####[facility] LABCLIA [id number] [place] [address] [place] Platelets (Bld) [#/Vol] 296 10*3/uL Normal 150-400 [facility] Comment on above: Order Comment: Speci men Type: BLOOD SPECIMENOrdering Facility: [facility] Address: [address] [place] [id number] Performed By: #### 5 7021-8 ####[facility] LABCLIA [id number] [place] [address] [facility] [place] RBC (Bld) [#/Vol] 5.03 10*6/uL Normal 3.90-5.20 [facility] Comment on above: Order Comment: Speci men Type: BLOOD SPECIMENOrdering Facility: [facility] Address: [facility] [place] [address] Performed By: #### 5 7021-8 ####[facility] LABCLIA [id number] [address] WBC (Bld) [#/Vol] 8.93 10*3/uL Normal 3.70-11.00 [facility] Comment on above: Order Comment: Speci men Type: BLOOD SPECIMENOrdering Facility: [facility] Address: [facility] [place] [address] Performed By: #### 5 7021-8 ####[facility] LABCLIA [id number] [address] [place] Comprehensive metabolic 2000 panelon 12-16-2023 Albumin [Mass/Vol] 4.6 g/dL Normal 3.9-4.9 [facility] Comment on above: Order Comment: Speci men Type: BLOOD SPECIMEN [facility] Address: [facility] [place] [address] Performed By: #### 2 4323-8 #### [facility] CLIA [id number] STATES [facility] ALP [Catalytic activity/Vol] 82 U/L Normal 34-123 [facility] Comment on above: Order Comment: Speci men Type: BLOOD SPECIMEN [facility] Address: [facility] [place] [address] Performed By: #### 2 4323-8 #### [facility] CLIA [id number] [address] [place] [address] [place] ALT [Catalytic activity/Vol] 11 U/L Normal 7-38 [facility] Comment on above: Order Comment: Speci men Type: BLOOD SPECIMEN [facility] Address: [facility] [place] [address] Performed By: #### 2 432-8 #### [facility] CLIA [id number] [address] [place] [address] [place] Anion gap [Moles/Vol] 15 mmol/L Normal 8-15 [facility] Comment on above: Order Comment: Speci men Type: BLOOD SPECIMEN [facility] Address: [facility] [place] [address] Performed By: #### 2 8 #### [facility] CLIA [id number] [address] [place] [address] [place] AST [Catalytic activity/Vol] 15 U/L Normal 13-35 [facility] Comment on above: Order Comment: Speci men Type: BLOOD SPECIMEN [facility] Address: [facility] [place] [address] Performed By: #### 2 4322-8 #### [facility] CLIA [id number] [address] [place] [address] [place] Bilirubin [Mass/Vol] 0.3 mg/dL Normal 0.2-1.3 [facility] Comment on above: Order Comment: Speci men Type: BLOOD SPECIMEN [facility] Address: [facility] [place] [address] Performed By: #### 2 4322-8 #### [facility] CLIA [id number] [address] [place] [address] [place] Calcium [Mass/Vol] 9.5 mg/dL Normal 8.5-10.2 [facility] Comment on above: Order Comment: Speci men Type: BLOOD SPECIMEN [facility] Address: [facility] [place] [address] Performed By: #### 2 4322-8 #### [facility] CLIA [id number] [address] [place] [address] [place] Chloride [Moles/Vol] 104 mmol/L Normal 98-107 [facility] Comment on above: Order Comment: Speci men Type: BLOOD SPECIMEN Ordering Facility: [facility] Address: [address] [place] [address] Performed By: #### 2 4323-8 #### [facility] CLIA [id number] [address] [place] [address] [place] CO2 [Moles/Vol] 23 mmol/L Normal 22-30 [facility] Comment on above: Order Comment: Speci men Type: BLOOD SPECIMEN Ordering Facility: [facility] Address: [address] [place] [address] Performed By: #### 2 4323-8 #### [facility] CLIA [id number] [address] [place] [address] [place] Creatinine [Mass/Vol] 0.75 mg/dL Normal 0.58-0.96 [facility] Comment on above: Order Comment: Speci men Type: BLOOD SPECIMEN Ordering Facility: [facility] Address: [facility] [place] [address] Performed By: #### 2 4323-8 #### [facility] CLIA [id number] [address] [place] [address] Creatinine and Glomerular filtration rate.predicted panel (S/P/Bld) 95 mL/min/1.73m??? Normal >=60 [facility] Comment on above: Order Comment: Speci men Type: BLOOD SPECIMEN Ordering Facility: [facility] Address: [facility] [place] [address] Result Comment: Teresa mated Glomerular Filtration Rate (eGFR) is calculated using the 2020 CKD-EPI creatinine equation. This equation utilizes serum creatinine, sex, and age as parameters. The creatinine assay has traceable calibration to isotope dilution-mass spectrometry. Refer to KDIGO guidelines for clinical interpretation. In patients with unstable renal function, e.g. those with acute kidney injury, the eGFR may not accurately reflect actual GFR. Performed By: #### 2 4323-8 #### [facility] CLIA [id number] [address] [place] [address] [place] Glucose [Mass/Vol] 85 mg/dL Normal 74-99 [facility] Comment on above: Order Comment: Jeanne escobar Type: BLOOD SPECIMEN Ordering Facility: [facility] Address: [facility] [place] [address] Result Comment: The [place] Diabetes Association (ADA) provides guidance for cutoff values for fasting glucose and random glucose. The ADA defines fasting as no caloric intake for at least 8 hours. Fasting plasma glucose results between 100 to 125 mg/dL indicate increased risk for diabetes (prediabetes). Fasting plasma glucose results greater than or equal to 126 mg/dL meet the criteria for diagnosis of diabetes. In the absence of unequivocal hyperglycemia, results should be confirmed by repeat testing. In a patient with classic symptoms of hyperglycemia or hyperglycemic crisis, random plasma glucose results greater than or equal to 200 mg/dL meet the criteria for diagnosis of diabetes. Reference: Standards of Medical Care in Diabetes 2016, English Diabetes Association. Diabetes Care. 2016.39(Suppl 1). Performed By: #### 2 4323-8 #### [facility] CLIA [id number] [address] [place] [address] [place] Potassium [Moles/Vol] 4.5 mmol/L Normal 3.7-5.1 [facility] Comment on above: Order Comment: Jeanne escobar Type: BLOOD SPECIMEN Ordering Facility: [facility] Address: [facility] [place] [address] Performed By: #### 2 4323-8 #### [facility] CLIA [id number] [address] [place] [address] [place] Protein [Mass/Vol] 7.6 g/dL Normal 6.3-8.0 [facility] Comment on above: Order Comment: Jeanne escobar Type: BLOOD SPECIMEN Ordering Facility: [facility] Address: [facility] [place] [address] Performed By: #### 2 4323-8 #### [facility] CLIA [id number] [address] [place] [address] [place] Sodium [Moles/Vol] 142 mmol/L Normal 136-144 [facility] Comment on above: Order Comment: Speci luz Type: BLOOD SPECIMEN Ordering Facility: [facility] Address: [address] [place] [id number] Performed By: #### 2 4323-8 #### [facility] CLIA [id number] [address] [place] [address] [place] Urea nitrogen [Mass/Vol] 12 mg/dL Normal 7-21 [facility] Comment on above: Order Comment: Speci men Type: BLOOD SPECIMEN Ordering Facility: [facility] Address: [address] [place] [address] Performed By: #### 2 4323-8 #### [facility] CLIA [id number] [address] [place] [address] [place] EHRLICHIA CHAF ABSon 12-15-2 024 EHRLICHIA CHAFFEENSIS ANTIBODY, IGG <1:64 Normal <1:64 [facility] Comment on above: Order Comment: Speci luz Type: BLOOD SPECIMENOrdering Facility: [facility] Address: [address] [place] [address] Result Comment: INTE RPRETIVE INFORMATION: Ehrlichia Chaffeensis IgG Ab Less than 1:64 ....... Negative: No significant level of Ehrlichia chaffeensis IgG antibody detected. 1:64-1:128 ........... Equivocal: Questionable presence of Ehrlichia chaffeensis IgG antibody detected. Repeat testing in 10-14 days may be helpful. 1:256 or greater ..... Positive: Presence of IgG antibody to Ehrlichia chaffeensis detected, suggestive of current or past infection. Seroconversion between acute and convalescent sera is considered strong evidence of recent infection. The best evidence for infection is a significant change (fourfold difference in titer) on two appropriately timed specimens, where both tests are done in the same laboratory at the same time. This test was developed and its performance characteristics determined by [facility]. It has not been cleared or approved by the US Food and Drug Administration. This test was performed in a CLIA certified laboratory and is intended for clinical purposes. Performed By: #### C ALANA LIZ [facility] ####[facility] [id number] [place] [address] EHRLICHIA CHAFFEENSIS ANTIBODY, IGM < 1:16 Normal < 1:16 [facility] Comment on above: Order Comment: Speci men Type: BLOOD SPECIMENOrdering Facility: [facility] Address: [address], [place] [address] Result Comment: INTE RPRETIVE INFORMATION: Ehrlichia Chaffeensis IgM Ab Less than 1:16 ....... Negative - No significant level of Ehrlichia chaffeensis IgM antibody detected. 1:16 or greater ...... Positive - Presence of IgM antibody to Ehrlichia chaffeensis detected, suggestive of current or recent infection. While the presence of IgM antibodies suggest current or recent infection, low levels of IgM antibodies may occasionally persist for more than 12 months post-infection. A single IgM result should be interpreted with caution. This test was developed and its performance characteristics determined by [facility]. It has not been cleared or approved by the US Food and Drug Administration. This test was performed in a CLIA certified laboratory and is intended for clinical purposes. Performed By: [facility] [address] [place] [address] Eeler: Jamir Pavon MD, PhD CLIA Number: [id number] Performed By: #### C ALANA LIZ [facility] ####[facility]IESCLIA [id number] [place] [address] ESR Westergren method (Bld) [Velocity]on 12-16-2023 ESR (Bld) [Velocity] 6 mm/h Normal 0-20 [facility] Comment on above: Order Comment: Speci men Type: BLOOD SPECIMEN Ordering Facility: [facility] Address: [address], [place] [address] Performed By: #### 4 537-7 #### [facility] CLIA [id number] [address] [place] [address] [place] LYME DISEASE BY PCRon 2023 BORRELIA SP. PCR Not detected Normal [facility] Comment on above: Order Comment: Speci men Type: BLOOD SPECIMEN Ordering Facility: [facility] Address: [address] [place] [address] Result Comment: NOT DETECTED - A negative result does not rule out the presence of PCR inhibitors in the patient specimen or assay specific nucleic acid in concentrations below the level of detection by the assay. Blood and CSF specimens have poor clinical sensitivity for detection of Borrelia burgdorferi by PCR. INTERPRETIVE INFORMATION: Borrelia Species DNA Detection by PCR This test was developed and its performance characteristics determined by [facility]. It has not been cleared or approved by the US Food and Drug Administration. This test was performed in a CLIA certified laboratory and is intended for clinical purposes. Performed By: [facility] [address] [place] [address] Eeler: Jamir Pavon MD, PhD CLIA Number: [id number] Performed By: #### L YPCR #### [facility] CLIA [id number] [address] [place] [address] Specimen source Nom (Unsp spec) Blood [facility] Comment on above: Order Comment: Speci men Type: BLOOD SPECIMEN Ordering Facility: [facility] Address: [address] [place] [id number] Performed By: #### L YPCR #### [facility] CLIA [id number] [address] [place] [address] ECHO 10-25-2023 Echocardiography Echocardiography Report: [facility] Date of service: 10/25/2023 8:40:44 AM Ordering physician: HAZEL COLLINS Indication: Lyme Disease Technologist: Lm Do BA, RVT Interpreting physician: Frank Lujan DO PATIENT: Name: PAULETTE TOPETE : 1970 Age: 53 years Gender: F Primary rhythm: sinus. Height: 160.00 cm BSA: 1.42 m Weight: 45.36 kg BMI: 17.7 kg/m Heart rate 64 bpm Blood pressure 97/67 mmHg Color Doppler was utilized to interrogate the cardiac valves assessed and spectral Doppler was utilized to determine the flow velocities and pressure gradients reported in this exam. MEASUREMENTS: Value Indexed Normal Max aortic dimension 2.5 cm Ao < 3.8 Left atrial volume 27 ml (biplane A-L) 19 ml/m Amrit <= 34 LV ID (diastole) 3.7 cm (2D) 2.61 cm/m LV ID (systole) 2.6 cm (2D) 1.83 cm/m IVS, leaflet tips 0.8 cm (2D) Posterior wall thickness 0.8 cm (2D) Left ventricular mass 82 g (2D) 58 g/m LV stroke volume 31 ml (2D 4-ch.) LVOT stroke volume 58 ml 40 ml/m LV end diastolic volume 52 ml (2D 4-ch.) 36.6 ml/m 29<=EDVi<62 LV end systolic volume 21 ml (2D 4-ch.) 14.8 ml/m Ejection Fraction 60 % (2D 4-ch.) EF > 54 FINDINGS: LEFT VENTRICLE The left ventricle is normal in size. There is no left ventricular hypertrophy. Left ventricular systolic function is normal globally. Normal left ventricular diastolic function. Mitral annular lateral E/e': 6.8. Mitral annular septal E/e': 8.9. Wall Motion: All scored segments are normal. RIGHT VENTRICLE The right ventricle is normal in size. Right ventricular systolic function is normal. RV systolic tissue Doppler velocity is 11.0 cm/s. Tricuspid annular displacement is 2.1 cm. Estimated right ventricular systolic pressure is 3 mmHg consistent with normal pulmonary artery pressures. Estimated right atrial pressure is 3 mmHg based on IVC assessment. LEFT ATRIUM The left atrial cavity is normal in size. RIGHT ATRIUM The right atrial cavity is normal in size. Inferior Vena Cava: The inferior vena cava appears normal measuring 1.5 cm. The vessel decreases greater than 50 percent with inspiration. MITRAL VALVE The mitral valve leaflets are structurally normal. There is no mitral stenosis. There is trace (trace - 1+) mitral valve regurgitation. The peak mitral valve gradient is 3 mmHg. The mean mitral valve gradient is 1 mmHg. The pressure half time is 51 msec. The peak mitral E/A ratio is 1.22. The average mitral E/e' ratio is 7.9. The mitral flow deceleration time is 177 msec. TRICUSPID VALVE The tricuspid valve leaflets are structurally normal. There is trace tricuspid valve regurgitation. AORTIC VALVE There is no aortic valve stenosis. There is no aortic valve regurgitation. The peak gradient is 7 mmHg (peak velocity = 128.0 cm/s). The LVOT mean velocity is 73.0 cm/s. The LVOT diameter is 1.9 cm. The aortic VTI is 23.5 cm. The mean velocity in the aortic valve is 79.0 cm/s. The dimensionless valve index is 0.87. AV area is 2.47 cm (1.74 cm /m ) by continuity, VTI. The LVOT stroke volume index is 40 ml/m . PULMONIC VALVE The pulmonic valve cusps are structurally normal. There is no pulmonic valve regurgitation. AORTA The visualized aorta is normal in size. Measurements - Sinus: 2.5 cm. Mid ascending aorta 2.3 cm. Mid arch 2.3 cm. PULMONARY ARTERIES The pulmonary arteries are normal. PERICARDIUM There is no pericardial effusion. CONCLUSIONS: - Exam indication: Lyme Disease - The left ventricle is normal in size. There is no left ventricular hypertrophy. Left ventricular systolic function is normal. EF = 60 5% (2D 4-ch.) - The right ventricle is normal in size. Right ventricular systolic function is normal. - Views of the aortic valve from the PSAX position were very limited. This exam couldnt identify how many cusps make up the aortic valve. - The patient has not had a prior CC echocardiographic exam for comparison. * * * Final * * * [facility] [employer] [facility] : [id number] [facility] US ABDOMEN COMPLETEon 2023 US ABDOMEN COMPLETE * * *Final Report* * * DATE OF EXAM: Oct 25 2023 8:25AM [facility] 1040 - US ABDOMEN COMPLETE / PROCEDURE REASON: FEVERS, LYME DISEASE * * * * Physician Interpretation * * * * EXAMINATION: COMPLETE ABDOMINAL ULTRASOUND HISTORY: FEVERS, LYME DISEASE TECHNIQUE: Sonography of the abdomen was performed. Images were obtained and stored in a permanent archive. MQ: UAbC_2 COMPARISON: CT abdomen and pelvis from July 08, 2021 RESULT: Pancreas: Normal sonographic appearance. Portions obscured: tail Liver: Echotexture: Normal, homogeneous. Echogenicity: Normal Surface contour: Smooth Lesions: none Biliary: No intrahepatic biliary duct dilation. CBD: 0.6 cm at the hilum. Gallbladder: Normal caliber -Contents: No cholelithiasis -Wall: Normal -Other: No pericholecystic fluid. Spleen: Craniocaudal length: 9.8 cm normal Lesions: None Right Kidney: -Renal length: 8.4 cm -Parenchyma: Normal echogenicity and thickness. -Collecting system: No hydronephrosis. -Calculus: None -Lesion: None Left Kidney: -Renal length: 9.8 cm -Parenchyma: Normal echogenicity and thickness. -Collecting system: No hydronephrosis. -Calculus: None -Lesion: None Bladder: Urinary bladder is not well visualized and possibly decompressed. IVC: Imaged segment is patent. Abdominal Aorta: Imaged segment is patent. Maximum Diameter: 2.4 cm Ascites: None. - IMPRESSION: No abnormality is identified. Apprentice/Lineman: TANK Transcribe Date/Time: Oct 27 2023 11:26P Dictated by : DAISY CASTORENA MD This examination was interpreted and the report reviewed and electronically signed by: DAISY CASTORENA MD on Oct 27 2023 11:27PM EST [id number] [facility] LYMES AB TOTAL w/rflx IgG/Ig Mon 10-11-2023 BORRELIA BURGDORFERI ABS, TOT 1.13 IV High <=0.90 [facility] Comment on above: Result Comment: REFE RENCE INTERVAL: B. burgdorferi VlsE1/pepC10 Abs, SANDEEP 0.90 IV or less..........Negative: VlsE1 and pepC10 antibodies to B. burgdorferi not detected. 0.91 - 1.09 IV...........Equivocal: Repeat testing in 10-14 days may be helpful. 1.10 IV or greater.......Positive: VlsE1 and pepC10 antibodies to B. burgdorferi detected. Performed By: [facility] [address] [place] [address] Eeler: Jamir Pavon MD, PhD CLIA Number: [id number] Performed By: #### * LYMEMTTT, LYME ACUTE #### [facility] [address] [place], [place] [id number] Lymes Modified 2 Tier AB IgG /Mon 10-11-2023 LYME IgG SANDEEP 0.35 IV Normal <=0.90 [facility] Comment on above: Result Comment: Refe rence Interval: Borrelia burgdorferi Ab, IgG by SANDEEP 0.90 IV or less.......... Negative: IgG antibodies to B. burgdorferi not detected. 0.91-1.09 IV............. Equivocal 1.10 IV or greater....... Positive: IgG antibodies to B. burgdorferi detected. Performed By: #### * LYMEMTTT, LYME ACUTE #### [facility] [address] [place], [place] [address] LYME IgM SANDEEP 1.98 IV Abnormal <=0.90 [facility] Comment on above: Result Comment: Refe rence Interval: Borrelia burgdorferi Ab, IgM by SANDEEP 0.90 IV or less.......... Negative: IgM antibodies to B. burgdorferi not detected. 0.91-1.09 IV............. Equivocal 1.10 IV or greater....... Positive: IgM antibodies to B. burgdorferi detected. Performed By: #### * LYMEMTTYREL, LYME ACUTE #### [facility] [address] [place] [address] LYME MTTT Interpretation Positive Abnormal Negative [facility] Comment on above: Result Comment: IgM- class antibodies to the Borrelia species causing Lyme disease were detected, suggesting acute or recent infection. If the patient has had symptoms for more than 4 weeks, a positive IgM result may be a false positive and not indicative of recent infection. Performed By: [facility] [address] [place] [address] Eeler: Jamir Pavon MD, PhD CLIA Number: [id number] Performed By: #### * LYMEMTTYREL, LYME ACUTE #### [facility] [address] [place], [place] [id number] CT/GC BY APTIMAon 09-03-2023 APTIMA Media Type Unisex Swab Normal () [facility] Comment on above: Performed By: #### C TNGAMP #### [facility] [address] [place], [place] [address] C.TRACHOMATIS BY APTIMA Negative Normal Negative [facility] Comment on above: Result Comment: INTE RPRETIVE INFORMATION: C. trachomatis by TMA This test is intended for medical purposes only and is not valid for the evaluation of suspected sexual abuse or for other forensic purposes. In certain contexts, culture may be required to meet applicable laws and regulations for diagnosis of C. trachomatis and N. gonorrhoeae infections. Per 2014 CDC recommendations, this test does not include confirmation of positive results by an alternative nucleic acid target. Performed By: #### C TNGAMP #### [facility] [address] [place] [address] GC BY APTIMA Negative Normal Negative [facility] Comment on above: Result Comment: INTE RPRETIVE INFORMATION: N. gonorrhoeae by TMA This test is intended for medical purposes only and is not valid for the evaluation of suspected sexual abuse or for other forensic purposes. In certain contexts, culture may be required to meet applicable laws and regulations for diagnosis of C. trachomatis and N. gonorrhoeae infections. Per 2014 CDC recommendations, this test does not include confirmation of positive results by an alternative nucleic acid target. Performed By: [facility] [address] [place] [address] Eeler: Jamir Pavon MD, PhD CLIA Number: [id number] Performed By: #### C TNGAMP #### [facility] Note [address] [place] [address] SOURCE Endocervical Normal () [facility] Comment on above: Performed By: #### C TNGAMP #### [facility] [address] [place] [address] PATHOLOGIST [facility] 09-01-2023 PATHOLOGIST RE[address] [facility] Comment on above: Result Comment: Cordelia pheral smear shows 65% neutrophils, 1% bands, 31% lymphocytes, and 3% monocytes. No blasts are identified. RBC morphology is unremarkable. Platelets appear adequate. Andrew Osuna M.D. Performed By: #### M DIFFMD #### [facility] [address] [address] ACUTE HEPATITIS PANELon 08-18 BCORE IGM Non-Reactive Normal Nonreactive [facility] Comment on above: Performed By: #### H EPPMARIELILE #### [facility] [address] [address] HBSAG Non-Reactive Normal Nonreactive [facility] Comment on above: Performed By: #### H EPPROFILE #### [facility] [address] [address] HEP A IGM Non-Reactive Normal Nonreactive [facility] Comment on above: Performed By: #### H EPPROFILE #### [facility] [address] [address] HEP C Non-Reactive Normal Nonreactive [facility] Comment on above: Performed By: #### H EPPROFILE #### [facility] [address] [address] COMPREHENSIVE METABOLICon ADJUSTED CALCIUM 9.0 MG/DL Normal [facility] Comment on above: Performed By: #### P ROF #### [facility] [address] [address] Albumin [Mass/Vol] 4.6 g/dL Normal 3.4-5.0 [facility] Comment on above: Performed By: #### P ROF #### [facility] [address] [address] Albumin/Globulin [Mass ratio] 1.5 {ratio} Normal 1.1-1.8 [facility] Comment on above: Performed By: #### P ROF #### [facility] [address] [address] ALP [Catalytic activity/Vol] 88 U/L Normal 45-117 [facility] Comment on above: Performed By: #### P ROF #### [facility] [address] [address] ALT [Catalytic activity/Vol] 12 U/L Low 13-61 [facility] Comment on above: Result Comment: Fals alexandra depressed or falsely elevated results may occur on samples drawn from patients taking Sulfasalazine and Sulfapyridine. Performed By: #### P ROF #### [facility] [address] [address] Anion gap [Moles/Vol] 12.5 mmol/L Normal 0-16 [facility] Comment on above: Performed By: #### P ROF #### [facility] [address] [address] AST [Catalytic activity/Vol] 12 U/L Normal 15-37 [facility] Comment on above: Result Comment: Fals alexandra depressed or falsely elevated results may occur on samples drawn from patients taking Sulfasalazine and Sulfapyridine. Performed By: #### P ROF #### [facility] [address] [address] Bilirubin [Mass/Vol] 0.40 mg/dL Normal 0.0-1.0 [facility] Comment on above: Result Comment: Use of this assay is not recommended for patients undergoing treatment with Eltrombopag due to the potential for falsely elevated results. Performed By: #### P ROF #### [facility] [address] [address] Calcium [Mass/Vol] 9.5 mg/dL Normal 8.5-10.1 [facility] Comment on above: Performed By: #### P ROF #### [facility] [address] [address] Chloride [Moles/Vol] 110 mmol/L High 98-107 [facility] Comment on above: Performed By: #### P ROF #### [facility] [address] [address] CO2 [Moles/Vol] 23 mmol/L Normal 21-32 [facility] Comment on above: Result Comment: TCO2 test measures total amount of CO2 in the blood, which occurs mostly in the form of bicarbonate (HCO3). Performed By: #### P ROF #### [facility] [address] [address] Creatinine [Mass/Vol] 0.79 mg/dL Normal 0.55-1.02 [facility] Comment on above: Performed By: #### P ROF #### [facility] [address] [address] GFR/1.73 sq M.predicted among non-blacks MDRD (S/P/Bld) [Vol rate/Area] 89 mL/min/{1.73_m2} Normal >60 [facility] Comment on above: Result Comment: Aver age GFR for 50-59 years old = 93 ml/min/1.73 sq.m Chronic Kidney Disease - GFR generally <60 ml/min/1.73 sq.m Kidney Failure - GFR generally <15 ml/min/1.73 sq.m The estimated glomerular filtration rate (eGFR) was calculated using the 1 CKD-EPI eGFR creatinine equation, which does not include race as a factor. This equation is validated in individuals 18 years of age and older. Accurate estimation of GFR requires stable day-to-day creatinine. Creatinine-based eGFR is less accurate in patients with extremes of muscle mass, restriction of dietary protein, ingestion of creatine, extra-renal metabolism of creatinine, or treatment with medications that affect renal tubular creatinine secretion. The eGFR is normalized to a body surface area of 1.73 square meters. GFR Categories in Chronic Kidney Disease (CKD) GFR GFR (mL/min/1.73 Category: square meters): Interpretation: G1 90 or greater Normal or high* G2 60-89 Mild decrease* G3a 45-59 Mild to moderate decrease G3b 30-44 Moderate to severe decrease G4 15-29 Severe decrease G5 14 or less Kidney failure *In the absence of evidence of kidney damage, neither GFR category G1 nor G2 fulfill the criteria for CKD (Kidney Int Suppl 2013;3:1-150) The new eGFRcr equation has similar overall performance characteristics to older equations. For most patients the previous eGFR result will be similar. However, for some, the values may differ by more than 10% particularly at higher values of eGFRcr and for younger patients. Please go to eGFR calculator/National Kidney Foundation to compare this result with a previously calculated eGFR based on older equations. Performed By: #### P ROF #### TWL [address] [address] Glucose [Mass/Vol] 96 mg/dL Normal 70-110 [facility] Comment on above: Result Comment: Fals alexandra depressed or falsely elevated results may occur on samples drawn from patients taking Sulfasalazine and Sulfapyridine. ADA Guidelines for Diabetes: Fasting glucose <100 = Normal fasting glucose. Fasting glucose 100-125 = Impaired fasting glucose, also referred to as pre-diabetes. Fasting glucose >125 = Provisional diagnosis of diabetes. Diagnosis must be confirmed by repeat testing on a different day. Performed By: #### P ROF #### TWL [address] [address] Potassium [Moles/Vol] 4.5 mmol/L Normal 3.5-5.1 [facility] Comment on above: Performed By: #### P ROF #### TWL [address] [address] Protein [Mass/Vol] 7.7 g/dL Normal 6.4-8.2 [facility] Comment on above: Performed By: #### P ROF #### TWL [address] [address] Sodium [Moles/Vol] 141 mmol/L Normal 136-145 [facility] Comment on above: Performed By: #### P ROF #### TWL [address] [address] Urea nitrogen [Mass/Vol] 14 mg/dL Normal 7-18 [facility] Comment on above: Performed By: #### P ROF #### TWL [address] [address] Urea nitrogen/Creatinine [Mass ratio] 17.7 mg/mg Normal 0-30 [facility] Comment on above: Performed By: #### P ROF #### TWL [place] [id number] BLOOD CULTUREon 08-17-2023 Bacteria identified Cx Nom (Bld) ---- RUN DATE: 08/23/23 Laboratory LIVE PAGE 1 RUN TIME: 719 Specimen Inquiry RUN USER: INTERFACE ---- [facility] Department of Laboratories [address] [place], [place] [id number] PATIENT: PAULETTE TOPETE LOC: MERY U #: [id number] HOME PHONE: AGE/SX: 53/F ROOM: RE08/17/23 [facility] DR: Carmen Tang D.O.B.: [birth year] BED: DIS: STATUS: REG REF LAB O/S: ---- Specimen: [id number] Collected: 08/17/23 Status: LILO Abel#: [id number] Received: 08/17/23-1751 Source: BLD DRY MOP MAKER Sp Desc: Subm Dr: Carmen Tang Ordered: BLOOD CULTURE ---- Procedure Result Verified ---- > BLOOD CULTURE Final 08/23/23 NO GROWTH AFTER 5 DAYS ---- END OF REPORT Normal [facility] Comment on above: Performed By: #### [facility] #### TWL [place] [id number] JOCELYN SCREENING W TOMOon 09-14 [facility] SCREEN DIGITAL BREAST TOMOon 09-14-2022 SCREEN DIGITAL BREAST GERTRUDE [place] [address] Name: PAULETTE TOPETE Phys: CARMEN TANG C.N.P. : 70 Age: 52 Sex: F Acct: [id number] Loc: RAD MAMM Exam Date: 09/14/22 Status: REG CLI Radiology No.: Unit Number: [id number] Exam # Type/Exam [id number] MAMMO / SCREEN DIGITAL BREAST GERTRUDE #[id number] - SCREEN DIGITAL BREAST GERTRUDE BILATERAL DIGITAL SCREENING MAMMOGRAM 3D/2D WITH CAD: 09/14/2022 CLINICAL: Annual Screening. Comparison is made to exams dated: 07/29/2021 mammogram - [facility] and 07/11/2020 mammogram - [facility]. The tissue of both breasts is extremely dense, which lowers the sensitivity of mammography. Current study was also evaluated with a Computer Aided Detection (CAD) system. No significant masses, calcifications, or other findings are seen in either breast. There has been no significant interval change. IMPRESSION: NEGATIVE There is no mammographic evidence of malignancy. A 1 year return mammogram is recommended.() The patient was notified of the results. Electronically signed by: Tobin manley/kristy:09/15/2022 08:54:11 Tobacco Drummer(s): RT Vivian(R)(M), [facility] BI-RADS: 1 Negative REPORT SIGNATURE ON FILE Reported By: TOBIN MEYERS D.O. << Signature on File>> Reported By: TOBIN MEYERS D.O. Signed By: TOBIN MEYERS D.O. Tests performed at: [address] [address] [facility] CNOVon 08-14-2022 CNOV Office Visit (UCUPNO ) PAULETTE TOPETE ([id number]) 1970 F Date Time Provider Department 08/14/22 2:50 PM RICHMOND SEAMAN During your visit today, we recorded the following information about you: Temperature Pulse Respiration Blood pressure 98.3 degrees 88/minute 18/minute 97/66 Weight 45.4 kg Richmond Seaman APRN.ICE CARVER 08/14/2022 4:18 PM Signed Pt will follow up with PCP if not better in 2-3 days or go to emergency department if worsening condition HEADACHE GENERAL INFORMATION: Almost everyone has a headache occasionally. Most headaches are caused by tension, eye strain, or emotional upset. Headaches can also occur with many medical illnesses. They may be a side effect of some medications. A headache that occurs without other symptoms and only lasts a few hours probably isn't a cause for concern. INSTRUCTIONS: 1. You may use dnol-jol-rhklmos pain medication such as acetaminophen, ibuprofen, or aspirin unless your doctor recommends otherwise. 2. Try some of the following measures to relieve your headache: Stretch and massage the muscles in your shoulders, neck, jaw, and scalp. Take a hot bath. Rest in a quiet, darkened room. Place a warm or cold wet cloth (whichever feels better to you) over the aching area. 3. Don't skip meals or delay meals for very long. Drink plenty of fluids. 4. Avoid alcoholic beverages and cigarette smoking. These often make a headache worse. 5. Get plenty of rest. A good night's sleep often is the best way to relieve a headache. CONTACT YOUR DOCTOR IF: 1. Your headache gets worse or lasts longer than 24 hours. 2. You develop a temperature over 100.5 F (38 C) 3. You need to take medicine to relieve headache pain more than 3 times a week. RETURN TO THE ED IF: 1. Your headache is different from any headache you ever had before, or is the worst headache of your life. 2. You feel confused or drowsy. 3. Your neck feels stiff. 4. You have a temperature of 102 F (39 C) or higher. 5. You have eye problems such as sensitivity to light or blurred or double vision. 6. You start to vomit. 7. You have difficulty walking, talking, or moving your arms or legs. Richmond Seaman APRN.ICE CARVER 08/14/2022 4:26 PM Signed August 14, 2022 HPI: Paulette Topete is a 52 year old female who presents today for Headache, symptoms started 5 days ago. She reports having nausea 4 days ago but not since. No light sensitivity. No fevers/chills. Tylenol does help some. Headache has been constant but varies in intensity. Is left sided,over to lt ear and down lt side of neck. No sinus congestion. Has had a cough off/on since May. Pt had a telehealth visit and they told her to go to an urgent care. PAST MEDICAL HISTORY Diagnosis Date B12 deficiency Fatigue Osteopenia Vitamin D deficiency PAST SURGICAL HISTORY Procedure Laterality Date APPENDECTOMY HX SECTION HX HYSTERECTOMY HX FAMILY HISTORY Problem Relation Age of Onset Depression Mother Breast Cancer Mother Lung Cancer Mother No Known Problems Father Social History Tobacco Use Smoking status: Every Day Packs/day: 0.50 Types: Cigarettes Smokeless tobacco: Never Vaping Use Vaping Use: Never used Substance Use Topics Alcohol use: Not Currently ALLERGIES No Known Allergies There is no immunization history on file for this patient. Current Medications: acetaminophen (TYLENOL) 325 mg cap Take by mouth. ergocalciferol 50,000 unit capsule (VITAMIN D2, DRISDOL) hydrOXYzine HCl (ATARAX) 50 mg tablet cyanocobalamin (VITAMIN B-12) 1,000 mcg tab Take 1,000 mcg by mouth once daily. montelukast (SINGULAIR) 10 mg tablet Take 10 mg by mouth daily at bedtime. FOLIC ACID ORAL Take by mouth. CALCIUM ACETATE ORAL Take by mouth. topiramate (TOPAMAX) 100 mg tablet TAKE 1 TABLET BY MOUTH TWICE A DAY (Patient not taking: Reported on 08/14/2022) fluticasone (FLONASE) 50 mcg/actuation nasal spray (Patient not taking: Reported on 08/14/2022) Review of Systems Constitutional: Negative for chills and fever. HENT: Positive for ear pain (lt). Negative for congestion and sore throat. Eyes: Negative for photophobia. Cardiovascular: Negative for chest pain. Neurological: Positive for headaches. Negative for dizziness, speech change, focal weakness, seizures and weakness. All other systems reviewed and are negative. Objective BP 97/66 Pulse 88 Temp 98.3 Resp 18 Wt 100 lb (45.4kg) SpO2 97% Physical Exam Constitutional: General: She is not in acute distress. Appearance: Normal appearance. She is not ill-appearing or toxic-appearing. HENT: Head: Normocephalic and atraumatic. Right Ear: Tympanic membrane normal. Left Ear: Tympanic membrane normal. Nose: Nose normal. Mouth/Throat: Mouth: Mucous membranes are moist. Pharynx: Oropharynx is clear. No posterior alvin (more content not included)... Normal [facility] PAP IG, HPV-hion 10-13-2017 DIAGNOSIS Normal [facility] Comment on above: Order Comment: Speci men Comment: No. of containers..01 ThinPrep VialSpecimen Comment: [id number] Comment: No. of containers..01 ThinPrep Vial Result Comment: NEGA TIVE FOR INTRAEPITHELIAL LESION AND MALIGNANCY. Performed By: #### L 801.4008 ####[place] [address] HPV, high-risk Normal [facility] Comment on above: Order Comment: Speci men Comment: No. of containers..01 ThinPrep VialSpecimen Comment: [id number] Comment: No. of containers..01 ThinPrep Vial Result Comment: The quantity of specimen remaining in the vial after Papslide preparation was less than the 4 mL minimum cellsuspension required. Low sample cellularity may be thecause. See HPV, low volume rfx test result.This high-risk HPV test detects thirteen high-risk types(16/18/31/33/35/39/45/51/52/56/58/59/68) withoutdifferentiation.Performed at: =[address] [id number] Director: Carolynn Sosa MD, Phone: [phone] quantity of specimen remaining in the vial after Papslide preparation was less than the 4 mL minimum cellsuspension required. Low sample cellularity may be thecause. See HPV, low volume rfx test result.This high-risk HPV test detects thirteen high-risk types(16/18/31/33/35/39/45/51/52/56/58/59/68) withoutdifferentiation. Performed By: #### L 801.4008 ####[place] [address] HPV,low vol Rfx Negative Normal Negative [facility] Comment on above: Order Comment: Speci men Comment: No. of containers..01 ThinPrep VialSpecimen Comment: [id number] Comment: No. of containers..01 ThinPrep Vial Result Comment: This test detects fourteen high-risk HPV types(16,18,31,33,35,39,45, 51,52,56,58,59,66,68) withoutdifferentiation.Performed at: =[address] [id number] Director: Carolynn Sosa MD, Phone: [phone] Performed By: #### L 801.4008 ####[place] [address] Note [facility] Comment on above: Order Comment: Speci men Comment: No. of containers..01 ThinPrep VialSpecimen Comment: [id number] Comment: No. of containers..01 ThinPrep Vial Result Comment: The Pap smear is a screening test designed to aid in thedetection of premalignant and malignant conditions of theuterine cervix. It is not a diagnostic procedure andshould not be used as the sole means of detecting cervicalcancer. Both false-positive and false-negative reports dooccur. Performed By: #### L 801.4008 ####[place] [address] Performed By [facility] Comment on above: Order Comment: Speci men Comment: No. of containers..01 ThinPrep VialSpecimen Comment: [id number] Comment: No. of containers..01 ThinPrep Vial Result Comment: Alphonse Celaya, Metal Door Assembler (ASCP) Performed By: #### L 801.4008 ####[place] [address] Spec Adequacy [facility] Comment on above: Order Comment: Speci men Comment: No. of containers..01 ThinPrep VialSpecimen Comment: [id number] Comment: No. of containers..01 ThinPrep Vial Result Comment: Sati sfactory for evaluation. No endocervical component is identified. Performed By: #### L 801.4008 ####[place] [address] Test Methodlogy [facility] Comment on above: Order Comment: Speci men Comment: No. of containers..01 ThinPrep VialSpecimen Comment: [id number] Comment: No. of containers..01 ThinPrep Vial Result Comment: The Thin Prep(R) Power Plant Assistant was unable to read this specimen.Therefore a manual review was performed.Performed at: [address] [id number] Director: Carolynn Sosa MD, Phone: [phone] Performed By: #### L 801.4008 ####[place] [address] Test Ordered Pap IG, HPV hi-risk Normal [facility] Comment on above: Order Comment: Speci men Comment: No. of containers..01 ThinPrep VialSpecimen Comment: [id number] Comment: No. of containers..01 ThinPrep Vial Performed By: #### L 801.4008 ####[place] [address] . . Normal . [facility] Comment on above: Order Comment: Speci men Comment: No. of containers..01 ThinPrep VialSpecimen Comment: [id number] Comment: No. of containers..01 ThinPrep Vial Performed By: #### L 801.4008 ####[place] [address] Vital Signs Date Time Vital Sign Value Performing Clinician Tom leo 03-08-2024 12:55-0400 Body temperature 97.7 [degF] MAHOGANY SILVA MD [facility] 03-08-2024 12:55-0400 Diastolic Blood Pressure Non-Invasive 69 mm[Hg] MAHOGANY SILVA MD [facility] 03-08-2024 12:55-0400 Heart rate 67 /min MAHOGANY SILVA MD [facility] 03-08-2024 12:55-0400 Respiratory rate 16 /min MAHOGANY SILVA MD [facility] 03-08-2024 12:55-0400 Systolic Blood Pressure Non-Invasive 107 mm[Hg] MAHOGANY SILVA MD [facility] 03-08-2024 12:37-0400 Body temperature 96.8 [degF] MAHOGANY SILVA MD [facility] 03-08-2024 12:37-0400 Diastolic Blood Pressure Non-Invasive 75 mm[Hg] MAHOGANY SILVA MD [facility] 03-08-2024 12:37-0400 Heart rate 76 /min MAHOGANY SILVA MD [facility] 03-08-2024 12:37-0400 Mean blood pressure 86 mm[Hg] MAHOGANY SILVA MD [facility] 03-08-2024 12:37-0400 Respiratory rate 16 /min MAHOGANY SILVA MD [facility] 03-08-2024 12:37-0400 Systolic Blood Pressure Non-Invasive 113 mm[Hg] MAHOGANY SILVA MD [facility] 03-08-2024 12:22-0400 Diastolic Blood Pressure Non-Invasive 67 mm[Hg] MAHOGANY SILVA MD [facility] 03-08-2024 12:22-0400 Heart rate 69 /min MAHOGANY SILVA MD [facility] 03-08-2024 12:22-0400 Mean blood pressure 75 mm[Hg] MAHOGANY SILVA MD [facility] 03-08-2024 12:22-0400 Respiratory rate 12 /min MAHOGANY SILVA MD [facility] 03-08-2024 12:22-0400 Systolic Blood Pressure Non-Invasive 91 mm[Hg] MAHOGANY SILVA MD [facility] 03-08-2024 12:10-0400 Mean blood pressure 69 mm[Hg] MAHOGANY SILVA MD [facility] 03-08-2024 12:07-0400 Body temperature 97.34 [degF] MAHOGANY SILVA MD [facility] 03-08-2024 12:07-0400 Heart rate 72 /min MAHOGANY SILVA MD [facility] 03-08-2024 11:55-0400 Respiratory Rate - Anes 4 br/min MAHOGANY SILVA MD [facility] 03-08-2024 11:50-0400 Respiratory Rate - Anes 8 br/min MAHOGANY SILVA MD [facility] 03-08-2024 09:53-0400 Body height 165.1 cm MAHOGANY SILVA MD [facility] 03-08-2024 09:53-0400 Body weight 45.3 kg MAHOGANY SILVA MD [facility] 03-08-2024 09:53-0400 Heart rate 69 /min MAHOGANY SILVA MD [facility] 08-14-2022 15:57-0500 Body temperature 98.29 [degF] Richmond Seaman APRN.ICE CARVER Work Phone: [facility] 08-14-2022 15:57-0500 Body weight 45.36 kg Richmond Seaman APRN.ICE CARVER Work Phone: [facility] 08-14-2022 15:57-0500 Diastolic blood pressure 66 mm[Hg] Richmond Seaman APRN.ICE CARVER Work Phone: [facility] 08-14-2022 15:57-0500 Heart rate 88 /min Richmond Seaman APRN.ICE CARVER Work Phone: [facility] 08-14-2022 15:57-0500 Respiratory rate 18 /min Richmond Seaman APRN.ICE CARVER Work Phone: [facility] 08-14-2022 15:57-0500 SaO2% (BldA) [Mass fraction] 97 % Richmond Talbotenter RETAIL LOSS PREVENTION SPECIALIST.ICE CARVER Work Phone: [facility] 08-14-2022 15:57-0500 Systolic blood pressure 97 mm[Hg] Richmond Talbotenter RETAIL LOSS PREVENTION SPECIALIST.ICE CARVER Work Phone: [facility] Encounters Encounter Date Encounter Type Care Provider Facility Start: 09-07-2024 End: 09-07-2024 ambulatory ZULEIKA FLEMING Facility:[id number] Start: 09-04-2024 ambulatory [facility] Start: 07-04-2024 End: 07-04-2024 ambulatory Mary Ktae MAISHA Facility:[facility] Start: 05-09-2024 End: 05-09-2024 ambulatory [facility] Start: 04-12-2024 ambulatory COREEN [facility] Start: 04-12-2024 End: 04-12-2024 ambulatory [facility] Start: 04-04-2024 End: 04-08-2024 ambulatory CARMEN TANG CNP Facility:A Start: 03-08-2024 End: 03-08-2024 ambulatory MAHOGANY SILVA MD Facility:A Start: 03-08-2024 End: 03-08-2024 SAME DAY STAY MAHOGANY SILVA MD [facility] Start: 01-25-2024 End: 01-29-2024 ambulatory EVANGELIST DIAZ MD Facility:A Start: 12-16-2023 End: 12-16-2023 ambulatory HAZEL COLLINS Facility:[id number] Start: 10-25-2023 ambulatory HAZEL COLLINS Facility: [id number] Start: 10-25-2023 End: 10-25-2023 Subsequent hospital visit by physician [facility] Comment on above: Lyme disease, unspec ified [A69.20] Fever in other disea ses [R50.81] Start: 10-18-2023 Transcribe Orders Hazel Love MD Work Phone: [facility] Comment on above: Fever in other disea ses (Primary Dx); Lyme disease Start: 10-05-2023 ambulatory Hazel Luna Nemr Facility: [facility] Start: 08-31-2023 ambulatory Carmen Tang Facility: [facility] Start: 08-17-2023 ambulatory Carmen Tang Facility: [facility] Start: 09-14-2022 ambulatory CARMEN TANG Facility: [facility] Start: 09-14-2022 End: 09-14-2022 Subsequent hospital visit by physician Provider [facility] Start: 08-14-2022 End: 08-14-2022 ambulatory CARMEN TANG Facility:[facility] Start: 08-14-2022 End: 08-14-2022 Patient encounter procedure Richmond Seaman APRN.ICE CARVER Work Phone: [facility] Comment on above: Acute intractable he adache, unspecified headache type (Primary Dx) Start: 04-07-2020 Patient encounter procedure [facility] Provider [facility] Start: 04-07-2020 Progress Note [facility] Provider IF [facility] Start: 10-10-2017 Ambulatory TRACY Aleida GUEVARA Facility :[facility] Start: 04-07-2015 Patient encounter procedure Cristy Lee MD Work Phone: [facility] Start: 04-07-2015 Progress Note Cristy Lee MD Work Phone: IF [facility] Procedures Date Procedure Procedure Detail Performing Clinician Start: 09-14-2022 JOCELYN SCREENING W GERTRUDE Pr ovider [facility] Start: 07-29-2021 Mammography [facility] Provid er Start: 06-20-1997 Abdominal hysterectomy MAHOGANY SILVA MD Start: 06-20-1995 section JENNIFER SILVA MD Appendectomy MAHOGANY Sánchez Tonsillectomy and adenoidectomy MAHOGANY SILVA MD Plan of Treatment Date Care Activity Detail Author Start: 07-08-2024 DIABETES SCREEN DIABETES SCREEN [facility] Start: 07-08-2024 Diabetes Screening Diabetes Screenin g [facility] Start: 02-19-2024 Influenza vaccination Influenz a Vaccine (Season Ended) [facility] Start: 10-25-2023 End: 10-25-2023 Patient encounter procedure [facility] Comment on above: DX:Fever with lyme d isease Start: 09-15-2023 Mammography Mammogram Screening [facility] Start: 09-15-2023 Screening for malign ant neoplasm of breast Mammogram Screening [facility] Start: 06-20-2023 Behavioral Health Screening Behavioral Health Screening [facility] Start: 02-18-2023 Covid-19 Vaccine ( season) Covid-19 Vaccine ( season) [facility] Start: 02-18-2023 Influenza vaccination Influenza Vacc ine (#1) [facility] Start: 07-29-2022 Mammography MAMMOGRAM [facility] Start: 06-20-2022 DEPRESSION ASSESSMENT DEPRESSION ASS ESSMENT [facility] Start: 02-18-2022 Influenza vaccination C [facility] Start: 01-23-2020 SHINGRIX VACCINE (1 of 2) WATSON GRIX VACCINE (1 of 2) [facility] Start: 2015 COLOGUARD (FIT-DNA) COLOGUARD (FIT-D NA) [facility] Start: 2015 Colonoscopy COLONOSCOPY [facility] Start: 2015 COLORECTAL CANCER SCREENING COLORECTAL CANCER SCREENING [facility] Start: [address] COLONOGRAPHY [facility] Start: 2015 FECAL OCCULT BLOOD FECAL OCCULT BLOO D [facility] Start: 2015 Lipid 1996 panel - S jose or Plasma Lipid Screening [facility] Start: 2015 Lipid panel Lipid Screening [facility] Start: 2015 LIPID SCREEN LIPID SCREEN [facility] Start: 2015 Screening for malign ant neoplasm of colon [facility] Start: 2015 [facility] Start: 01-23-2000 HPV TESTING HPV TESTING [facility] Start: 01-23-2000 Screening for malign ant neoplasm of cervix HPV Testing [facility] Start: 1991 PAP TESTING PAP TESTING [facility] Start: 1991 Screening for malign ant neoplasm of cervix Pap Testing [facility] Start: 1989 Hepatitis B Vaccine (1 of 3 - 19+ 3-dose series) Hepatitis B Vaccine (1 of 3 - 19+ 3-dose series) [facility] Start: 1989 Urine microalbumin profile [facility] Start: 01-23-1988 HEPATITIS C SCREENING HEPATITIS C [facility] Start: 01-23-1988 Hepatitis C screening [facility] Start: 01-23-1988 HIV SCREENING HIV SCREENING [facility] Start: 01-23-1988 HIV screening HIV Screening [facility] Start: 1982 Adult depression scr eening assessment DEPRESSION SCREENING [facility] Start: 01-23-1976 PNEUMOCOCCAL (1 - PCV) PNEUMOCOCCAL (1 - PCV) [facility] Start: 01-23-1976 Pneumococcal vaccination [facility] Start: 1975 COVID-19 VACCINE (#1) COVID-19 VACCI NE (#1) [facility] Start: 1970 COVID-19 VACCINE (#1) COVID-19 VACCI NE (#1) [facility] Start: 1970 HEPATITIS B (1 of 3 - 3-dose series) HEPATITIS B (1 of 3 - 3-dose series) [facility] Start: 1970 Hepatitis B Vaccine (1 of 3 - 3-dose series) Hepatitis B Vaccine (1 of 3 - 3-dose series) [facility] End: 10-17-2024 Echocardiography ECHO Cardiology Routine Fever in other diseases Lyme disease 1 Occurrences starting 10/18/2023 until 10/17/2024 [facility] Work Phone: Comment on above: 1 Occurrences starti ng 10/18/2023 until 10/17/2024 Payers Date Payer Category Payer Self-pay 2024 Unknown [id number] 2023 Unknown [id number] 2022 Unknown [id number] 2022 Unknown [id number] 2019 Unknown [employer] PPO OOS [id number] 2019-Present [phone] [address] [place] [id number] PPO [id number] 1970 Unknown [id number] 1970 Unknown [id number] 1970 Unknown [id number] 1970 Unknown [id number] 1970 Unknown [id number] 1970 Unknown [id number] 1970 Unknown [id number] Unknown [id number] Unknown [id number] Social History Date Type Detail Facility Tobacco smoking stat [facility] Tobacco smoking consumption unknown [facility] Start: 1970 Sex Assigned At Not on file [facility] Start: 03-08-2021 End: 04-07-2021 Exposure to SARS-CoV-2 (event) Not sure [facility] Start: 08-14-2022 [facility] History of tobacco use Cigarette Smoker [facility] Start: 04-07-2021 End: 08-14-2022 Cigarettes smoked current (pack per day) - Reported 0.5 [facility] Start: 08-14-2022 Tobacco use and exposure Smoke less tobacco non-user [facility] Start: 08-14-2022 Alcohol intake Ex-drinker (finding) [facility] Start: 04-07-2021 End: 08-14-2022 Tobacco use panel [facility] National Score (1-10 0), lower number is lower risk Not on file [facility] Start: 1970 Sex Assigned At Female [facility] Start: 10-25-2023 Gender identity Identifies as female gender (finding) [facility] Start: 10-25-2023 Sexual orientation Heterosexual (fin ding) [facility] Start: 03-06-2024 Tobacco smoking status Heavy t obacco smoker (finding) [facility] Sex Assigned At Sex [facility] Hospital Goals Date Patient Goal Desired Activity /State Personal health goal Functional Status Date Assessment Result Facility 03-08-2024 Functional Status Up ad joelle [facility] 03-08-2024 Functional Status [facility] 03-08-2024 [facility]24 Functional Status [facility] Mental Status Date Assessment Result Facility 03-08-2024 Mental Status Oriented x 4 [facility] 03-08-2024 Mental Status [facility] Clinical Notes 04-07-2015 to 03-08-2024 Zehra Sandoval RT(Joe) - 10/25/2023 7:00 AM Jewels Seaman APRN.ICE CARVER - 08/14/2022 4:19 PM ESTPatient InstructionsCcf Provider - 04/07/2020 2:46 PM Jack Lee MD - 04/07/2015 10:42 PM EDT Note Date & Type Note Facility 03-08-2024 Hospital Discharge instructions Patient Education 03/08/2024 13:37:08 Flexible Bronchoscopy, Care After Flexible Bronchoscopy, Care After This sheet gives you information about how to care for yourself after your procedure. Your health care provider may also give you more specific instructions. If you have problems or questions, contact your health care provider. What can I expect after the procedure? After the procedure, it is common to have the following symptoms for 24 48 hours: A cough that is worse than it was before the procedure. A low-grade fever. A sore throat or hoarse voice. Small streaks of blood in the mucus from your lungs (sputum), if tissue samples were removed (biopsy). Follow these instructions at home: Eating and drinking Do not eat or drink anything (including water) for 2 hours after your procedure, or until your numbing medicine (local anesthetic) has worn off. Having a numb throat increases your risk of burning yourself or choking. After your numbness is gone and your cough and gag reflexes have returned, you may start eating only soft foods and slowly drinking liquids. The day after the procedure, return to your normal diet. Driving Do not drive for 24 hours if you were given a medicine to help you relax (sedative). Do not drive or use heavy machinery while taking prescription pain medicine. General instructions Take iozg-dwo-cndswuc and prescription medicines only as told by your health care provider. Return to your normal activities as told by your health care provider. Ask your health care provider what activities are safe for you. Do not use any products that contain nicotine or tobacco, such as cigarettes and e-cigarettes. If you need help quitting, ask your health care provider. Keep all follow-up visits as told by your health care provider. This is important, especially if you had a biopsy taken. Get help right away if: You have shortness of breath that gets worse. You become light-headed or feel like you might faint. You have chest pain. You cough up more than a small amount of blood. The amount of blood you cough up increases. Summary Common symptoms in the 24 48 hours following a flexible bronchoscopy include cough, low-grade fever, sore throat or hoarse voice, and blood-streaked mucus from the lungs (if you had a biopsy). Do not eat or drink anything (including water) for 2 hours after your procedure, or until your local anesthetic has worn off. You can return to your normal diet the day after the procedure. Get help right away if you develop worsening shortness of breath, have chest pain, become light-headed, or cough up more than a small amount of blood. This information is not intended to replace advice given to you by your health care provider. Make sure you discuss any questions you have with your health care provider. Document Released: 12/24/2005 Document Revised: 05/19/2018 Document Reviewed: 06/24/2017 [employer] Patient Education 2020 [employer]. Follow Up Care 03/05/2024 16:02:03 With:MAHOGANY SILVA MD Address: [address] [place] [address] [place] [address] [phone] When: Unknown Comments:Follow-up as scheduled. Schedule appointment as soon as possible [facility] 03-08-2024 Anesthesiology Consult note Patient: PAULETTE TOPETE Age: 54 years Sex: Female : 1970 Associated Diagnoses: None Author: LM MOONEY MD Postoperative Information Post Operative Info: Post op day: Post Anesthesia Care Unit. Patient location: PACU. Assessment Postanesthesia assessment Vitals: Vital signs from flowsheet : Vital Signs 03/08/2024 12:55 EDT Temperature Temporal Artery 36.5 DegC Peripheral Pulse Rate 67 bpm Respiratory Rate 16 br/min Systolic Blood Pressure Non-Invasive 107 mmHg Diastolic Blood Pressure Non-Invasive 69 mmHg 03/08/2024 12:37 EDT Temperature Temporal Artery 36 DegC Heart Rate Monitored 76 bpm Respiratory Rate 16 br/min Systolic Blood Pressure Non-Invasive 113 mmHg Diastolic Blood Pressure Non-Invasive 75 mmHg Mean Arterial Pressure (NBP) 86 mmHg 03/08/2024 12:22 EDT Heart Rate Monitored 69 bpm Respiratory Rate 12 br/min LOW Systolic Blood Pressure Non-Invasive 91 mmHg Diastolic Blood Pressure Non-Invasive 67 mmHg Mean Arterial Pressure (NBP) 75 mmHg 03/08/2024 12:10 EDT Systolic Blood Pressure Non-Invasive 87 mmHg LOW Diastolic Blood Pressure Non-Invasive 61 mmHg Mean Arterial Pressure (NBP) 69 mmHg 03/08/2024 12:07 EDT Temperature Temporal Artery 36.3 DegC Heart Rate Monitored 72 bpm Respiratory Rate 12 br/min LOW Systolic Blood Pressure Non-Invasive 133 mmHg Diastolic Blood Pressure Non-Invasive 110 mmHg >HHI Mean Arterial Pressure (NBP) 118 mmHg 03/08/2024 12:00 EDT Heart Rate Monitored 72 bpm bpm Respiratory Rate - Anes 4 br/min br/min Systolic Blood Pressure Non-Invasive 86 mmHg mmHg Diastolic Blood Pressure Non-Invasive 66 mmHg mmHg 03/08/2024 11:57 EDT Systolic Blood Pressure Non-Invasive 91 mmHg mmHg Diastolic Blood Pressure Non-Invasive 63 mmHg mmHg 03/08/2024 11:55 EDT Heart Rate Monitored 76 bpm bpm Respiratory Rate - Anes 4 br/min br/min 03/08/2024 11:54 EDT Systolic Blood Pressure Non-Invasive 93 mmHg mmHg Diastolic Blood Pressure Non-Invasive 65 mmHg mmHg 03/08/2024 11:51 EDT Systolic Blood Pressure Non-Invasive 92 mmHg mmHg Diastolic Blood Pressure Non-Invasive 67 mmHg mmHg 03/08/2024 11:50 EDT Heart Rate Monitored 79 bpm bpm Respiratory Rate - Anes 8 br/min br/min 03/08/2024 11:48 EDT Systolic Blood Pressure Non-Invasive 94 mmHg mmHg Diastolic Blood Pressure Non-Invasive 71 mmHg mmHg 03/08/2024 11:45 EDT Heart Rate Monitored 82 bpm bpm Respiratory Rate - Anes 5 br/min br/min Systolic Blood Pressure Non-Invasive 93 mmHg mmHg Diastolic Blood Pressure Non-Invasive 75 mmHg mmHg 03/08/2024 11:42 EDT Systolic Blood Pressure Non-Invasive 83 mmHg mmHg Diastolic Blood Pressure Non-Invasive 63 mmHg mmHg 03/08/2024 11:40 EDT Heart Rate Monitored 84 bpm bpm Respiratory Rate - Anes 18 br/min br/min 03/08/2024 11:39 EDT Systolic Blood Pressure Non-Invasive 77 mmHg mmHg Diastolic Blood Pressure Non-Invasive 63 mmHg mmHg 03/08/2024 11:36 EDT Systolic Blood Pressure Non-Invasive 97 mmHg mmHg Diastolic Blood Pressure Non-Invasive 66 mmHg mmHg 03/08/2024 11:35 EDT Heart Rate Monitored 75 bpm bpm Respiratory Rate - Anes 0 br/min br/min 03/08/2024 9:53 EDT Temperature Temporal Artery 36.4 DegC Apical Heart Rate 69 bpm Respiratory Rate 18 br/min Systolic Blood Pressure Non-Invasive 104 mmHg Diastolic Blood Pressure Non-Invasive 69 mmHg , Oxygen Therapy : Oxygen Therapy & Oxygenation Information 03/08/2024 12:55 EDT Oxygen Saturation 94 % 03/08/2024 12:37 EDT Oxygen Therapy Room air Oxygen Saturation 98 % 03/08/2024 12:22 EDT Oxygen Therapy Room air Oxygen Saturation 97 % 03/08/2024 12:07 EDT Oxygen Therapy Nasal cannula 0L-6L Oxygen Saturation 97 % Oxygen Flow Rate 4 03/08/2024 12:00 EDT Oxygen Saturation 99 % % 03/08/2024 11:55 EDT Oxygen Saturation 99 % % 03/08/2024 11:50 EDT Oxygen Saturation 99 % % 03/08/2024 11:45 EDT Oxygen Saturation 99 % % 03/08/2024 11:40 EDT Oxygen Saturation 99 % % 03/08/2024 11:35 EDT Oxygen Saturation 95 % % 03/08/2024 9:53 EDT Oxygen Therapy Room air Oxygen Saturation 98 % . Mental status: at preoperative baseline. Respiratory function: respirations are non-labored, Stable. Respiratory support: none. CV function: Stable. Cardiovascular support: none. Pain: Satisfactory. Nausea status: Satisfactory. Postoperative hydration status: within normal limits. Notes: Patient is sufficiently recovered from anesthesia to participate in the evaluation. No follow-up care needed. No complications post-anesthesia.. Digitally Signed by LM MOONEY MD on 03/08/2024 02:16 PM [facility] 03-08-2024 Summary of episode note Discharge Instructions Thank you for allowing [facility] to assist you with your healthcare needs. The following is important discharge information regarding your hospital visit. Your Care Team CARMEN TANG ICE CARVER What to do next Follow Up Appointments Follow Up with MAHOGANY SILVA MD Where:[address] [facility] [address] [place] [place] [address] [phone] Additional Information: Follow-up as scheduled. Schedule appointment as soon as possible The Following Activity and Diet Have Been Ordered for You No qualifying data available. No qualifying data available. The Following Equipment Has Been Ordered for You No qualifying data available. Someone Will Contact You Regarding These Home Health Referrals No home referrals have been ordered for you. No one will call you. Allergies No Known Medication Allergies Medications Please ask your primary doctor or pharmacist before taking any other medication not listed, including over the counter drugs, herbal medications, vitamins and or supplements as they may interact with your home medications. What How Much When Instructions Last Dose Unchanged alendronate (alendronate 70 mg oral tablet) 1 tab(s) by mouth Every Tuesday Unchanged aspirin (aspirin 81 mg oral delayed release tablet) 1 tab(s) by mouth Every day Last Dose Unchanged calcium-vitamin D (Calcium 600+D oral tablet) 1 tab(s) by mouth Every day Unchanged cyanocobalamin (Vitamin B12 5000 mcg oral tablet, disintegrating) 1 tab(s) by mouth Once a day Unchanged ergocalciferol (ergocalciferol 50,000 intl units (1.25 mg) oral capsule) 1 cap by mouth Every Tuesday Unchanged folic acid (folic acid 0.8 mg oral tablet) 1 tab(s) by mouth Once a day (in the morning) Unchanged omega-3 polyunsaturated fatty acids (Fish Oil 1000 mg oral capsule) 1 cap by mouth Once a day Unchanged tiotropium (Spiriva Respimat 60 ACT 2.5 mcg/ inh inhalation aerosol) 2 puff(s) by inhalation Once a day (in the morning) Please take this list to your next doctor s visit. Bring all medications you take, including over the counter medications, herbals and other supplements with you to your doctor s visit. Patients and families are reminded to discard old lists and to update any records with all medication providers or retail pharmacies. Education Materials Flexible Bronchoscopy, Care After This sheet gives you information about how to care for yourself after your procedure. Your health care provider may also give you more specific instructions. If you have problems or questions, contact your health care provider. What can I expect after the procedure? After the procedure, it is common to have the following symptoms for 24 48 hours: A cough that is worse than it was before the procedure. A low-grade fever. A sore throat or hoarse voice. Small streaks of blood in the mucus from your lungs (sputum), if tissue samples were removed (biopsy). Follow these instructions at home: Eating and drinking Do not eat or drink anything (including water) for 2 hours after your procedure, or until your numbing medicine (local anesthetic) has worn off. Having a numb throat increases your risk of burning yourself or choking. After your numbness is gone and your cough and gag reflexes have returned, you may start eating only soft foods and slowly drinking liquids. The day after the procedure, return to your normal diet. Driving Do not drive for 24 hours if you were given a medicine to help you relax (sedative). Do not drive or use heavy machinery while taking prescription pain medicine. General instructions Take wzgy-fyj-niarqme and prescription medicines only as told by your health care provider. Return to your normal activities as told by your health care provider. Ask your health care provider what activities are safe for you. Do not use any products that contain nicotine or tobacco, such as cigarettes and e-cigarettes. If you need help quitting, ask your health care provider. Keep all follow-up visits as told by your health care provider. This is important, especially if you had a biopsy taken. Get help right away if: You have shortness of breath that gets worse. You become light-headed or feel like you might faint. You have chest pain. You cough up more than a small amount of blood. The amount of blood you cough up increases. Summary Common symptoms in the 24 48 hours following a flexible bronchoscopy include cough, low-grade fever, sore throat or hoarse voice, and blood-streaked mucus from the lungs (if you had a biopsy). Do not eat or drink anything (including water) for 2 hours after your procedure, or until your local anesthetic has worn off. You can return to your normal diet the day after the procedure. Get help right away if you develop worsening shortness of breath, have chest pain, become light-headed, or cough up more than a small amount of blood. This information is not intended to replace advice given to you by your health care provider. Make sure you discuss any questions you have with your health care provider. Document Released: 12/24/2005 Document Revised: 05/19/2018 Document Reviewed: 06/24/2017 [employer] Patient Education 2020 [employer]. Additional Information VACCINATE! IT SAVES LIVES! Members of the community who have not yet received the COVID-19 vaccine and would like to receive it can visit one of [facility] vaccine clinics. There are many vaccine clinic locations within the [facility]. For locations and available times, please visit https://gettheshot.coronavirus.[place].gov/. It is important to note that some COVID mobile vaccine clinics are held outdoors and may be canceled in rainy or stormy conditions. To learn more about pediatric vaccinations (ages 5-11), we invite you to visit the [facility] webpage. [email or web address]/[email or web address]- Sbazaqlamwn-Uqihipmbow-Gosdn-[email or web address].html To learn more about the COVID-19 vaccine, we invite you to visit the CDC website for a list of frequently asked questions.https://www.cdc.gov/coronavirus/2019-n cov/vaccines/faq.html [facility] Patient Portal Access Instructions: Stay connected with your healthcare team and access your personal medical information anytime with the [facility] Patient Portal. Please follow the directions below to create your [facility] account: 1.Access the email account you provided upon registration to the hospital/physician office.2.Look for an invitation email from [facility].3.Open the email and access the invitation link: Accept Invitation to [facility].4.Fill in the required weldon to create your account. To access your account, visit [email or web address]. Click the blue button labeled Access Patient Portal and then log in with the username and password that you created in the steps above. You will be able to view your test results, lab results, a summary of your visits, upcoming appointments and more. There is also a convenient messaging option where you can send secure messages to your provider. In addition, you will have the ability to download any documents or summaries to your computer and/or send the information securely to a physician. Remember that your healthcare information is confidential, so carefully consider who you will allow to register on the [facility] Patient Portal for access to your information. You can also access the [facility] Patient Portal on the [facility] suhail. Simply click on Patient Portal and then log into your account. If you would like to receive a full copy of your medical records, please contact the [facility] Medical Records Department by calling [phone], Tuesday through Tuesday between 8 a.m. and 4:30 p.m. HOW TO SAFELY DISPOSE OF PRESCRIPTION MEDICATIONS Please use one of the following methods to safely dispose of your unused medications. 1.Use a drug disposal kit: the drug disposal pouch allows you to safely discard your old and unused drugs. Ask your nurse to give you one when you are discharged.2.Visit a local take-back location: Many local pharmacies and police departments have programs that collect old and unwanted prescription drugs. Call your local pharmacy or go to http://bit.[employer]/7D0Va6d to find one close to you.3.Make use of household items: Use cat litter or old coffee grounds to dispose medications if other options are not available. Mix your drugs with these household products, seal them in an airtight container and throw it into the garbage. Call [facility]: [phone] to be sure your drugs can be disposed of in this way. Some medicines may require a different approach.4.Never flush your medications down the toilet. IF YOU HAVE BEEN PRESCRIBED AN OPIOID FOR PAIN If you have been prescribed an opioid (such as hydrocodone, oxycodone or morphine), it is critical to understand the possible side effects and risks of opioid pain medications. Even when taken as directed, opioids can have several side effects including: Tolerance, meaning you might need to take more of a medication for the same pain relief. Nausea, vomiting and/or constipation. Sleepiness, dizziness, dry mouth, confusion, depression or itching. Physical dependence, meaning you have withdrawal symptoms when a medication is stopped, can develop within a few days. KNOW YOUR RESPONSIBILITIES It is important to know exactly how much and how often to take the opioid pain medications you are prescribed. Never take opioids in higher amounts or more often than prescribed. Do not combine opioids with alcohol or other drugs that cause drowsiness, such as benzodiazepines, also known as benzos, including diazepam and alprazolam, muscle relaxants or sleep aids. Never sell or share prescription opioids. This is illegal. Store opioids in a secure place and out of reach of others (including children, family, friends and visitors). The last page of this document has been signed and retained as a CHART COPY. Signatures Patient Education Materials Flexible Bronchoscopy, Care After Medication Leaflets My discharge plan and instructions have been reviewed and explained to me and I,PAULETTE TOPETE understand my current condition and have read and understand these discharge instructions. I have received a written copy of the plan/instructions. If I have questions, I am aware that I should contact my doctor. Patient/Communications Manager Signature: Date/Time: Relationship to Patient: Witness Name/Signature: Date/Time: [facility] 03-08-2024 Procedure note Date of Service 03/08/2024 Procedure Name Bronchoscopy with endobronchial ultrasound Consent Informed consent was signed and placed in the chart Indication Mediastinal lymphadenopathy Location OR 1 Procedural Sedation General anesthesia Technique Following informed consent in which the risks, benefits and alternatives were explained to the patient airway was secured with LMA. We EBUS bronchoscope was passed with ease through the LMA with an excellent view of the vocal cords. A total of 12 mL of viscous lidocaine was used to anesthetize the upper airway and tracheobronchial tree. The scope was advanced to station number 11R where FNA biopsies were obtained under ultrasound guidance. The scope was then withdrawn to station #7 where several additional passes were obtained again under ultrasound guidance. Patient tolerated procedure well. Bleeding was minimal. The ultrasound scope was then removed and a traditional bronchoscope was reinserted for airway exam. The vocal cords, right upper lobe, right middle lobe and right lower lobe segments all appeared normal. The left upper lobe, lingula and left lower lobe segments were normal as well. There is no active bleeding noted from the station #7 and station number 11R FNA biopsies. The remainder of secretions were suctioned, the scope was removed and the patient tolerated the procedure well Findings No endobronchial disease Complications None immediate Estimated Blood Loss Less than 2 mL Total Time 35 minutes Assessment/Plan 1. Mediastinal lymphadenopathy status post bronchoscopy with endobronchial ultrasound sampling of station #11R and station #7 Follow Up/Recommendation 1. Follow-up results of cytology from station #11R and station #7 2. Follow-up cytology from bronchial washings Digitally Signed by MAHOGANY SILVA MD on 03/08/2024 12:05 PM [facility] 03-08-2024 Anesthesiology Consult note Patient: PAULETTE TOPETE Age: 54 years Sex: Female : 1970 Associated Diagnoses: None Author: SUE CLAUDIO MD Preoperative Information > 8 hours Anesthesia history Patient's history: negative. Family's history. Health Status Allergies: Allergic Reactions (Selected) No Known Medication Allergies, Allergies (1) ActiveSeverityReaction No Known Medication AllergiesNone Documented Current medications: (Selected) Inpatient Medications Ordered Lactated Ringers Infusion 1,000 mL: 20 mL/hr, Intravenous, Stop: 03/08/24 22:59:00 EDT Documented Medications Documented Calcium 600+D oral tablet: 1 tab(s), Oral, Daily, 0 Refill(s) Fish Oil 1000 mg oral capsule: 1,000 mg, 1 cap(s), Oral, qDay, 90 cap(s), 0 Refill(s) Spiriva Respimat 60 ACT 2.5 mcg/inh inhalation aerosol: 2 puff(s), Inhalation, qAM, 4 gram(s), 0 Refill(s) Vitamin B12 5000 mcg oral tablet, disintegratin,000 mcg, 1 tab(s), Oral, qDay, 100 tab(s), 0 Refill(s) alendronate 70 mg oral tablet: 70 mg, 1 tab(s), Oral, Tuesday, 12 tab(s), 0 Refill(s) aspirin 81 mg oral delayed release tablet: 81 mg, 1 tab(s), Oral, Daily, Last Dose 02/27/24, 0 Refill(s) ergocalciferol 50,000 intl units (1.25 mg) oral capsule: 50,000 International_Unit, 1 cap(s), Oral, Tuesday, 4 cap(s), 0 Refill(s) folic acid 0.8 mg oral tablet: 0.8 mg, 1 tab(s), Oral, qAM, 250 tab(s), 0 Refill(s), Medications (1) Active Scheduled: (0) Continuous: (1) Lactated Ringers 1,000 mL 1,000 mL, Intravenous, 20 mL/hr PRN: (0) Problem list: Active Problems (14) Anxiety Back pain Cervical cancer Depression Emphysema of lung Enlarged lymph nodes Fever Glasses Headache Lyme disease Osteoporosis Palpitations Tobacco use Vitamin D deficiency Histories Past Medical History: No active or resolved past medical history items have been selected or recorded. Procedure history: Abdominal hysterectomy ([id number]) in 1997 at 28 Years. section ([id number]) in 1995 at 26 Years. Appendectomy (307856703). Tonsillectomy and adenoidectomy (412562737). Social History: Social & Psychosocial Habits Alcohol 03/08/2024 Use: Current Frequency: 1-2 times per year Substance Abuse 03/08/2024 Use: Never Tobacco 03/08/2024 Tobacco Use: 10 or more cigarettes (1/ Type: Cigarettes Tobacco use per day: 20 Started at age: 15 Years Home/Environment 03/08/2024 Living situation: Home/Independent Domestic Concerns None Lives In Single level home Physical Examination Measurements from flowsheet : Measurements 03/08/2024 9:53 EDT Height 165.1 cm Height in inches 65 inch(es) Admission Weight 45.3 kg Weight Lbs 99.7 lb [place] Body Weight 57.00 kg Admission Body Mass Index 16.62 m2 General: Alert and oriented, No acute distress. Airway: Mallampati classification: II (soft palate, fauces, uvula visible). Head: Normocephalic, Atraumatic. Dentition Evaluation: Intact, Own teeth. Respiratory: Lungs are clear to auscultation, Respirations are non-labored. Cardiovascular: Normal rate. Heart Sounds: Normal. Neurologic: Alert, Oriented. Review / Management Documentation reviewed: Current records, Reviewed prior records. Assessment and Plan h/o cervical cancer, emphysema, lyme disease, tobacco use [place] [employer] of Anesthesiologists (ASA) physical status classification: Class III. Anesthetic Preoperative Plan Anesthetic technique: General. Induction: intravenously. Maintenance airway: Laryngeal mask airway. Risks discussed: nausea, vomiting, headache, sore throat, dental injury, hypotension, allergic reaction, serious complications. Informed consent: signed by patient. Digitally Signed by SUE CLAUDIO MD on 03/08/2024 11:11 AM [facility] 10-25-2023 History of Present illness Narrative Formatting of this note might be differe nt from the original. Radiology Service Progress Note PATIENT NAME: Paulette Topete DATE OF SERVICE: October 25, 2023 TIME: 7:33 AM PATIENT IDENTITY VERIFICATION COMPLETED USING TWO (2) IDENTIFIERS: Name and Date of confirmed by patient verbally. FALL SCREENING: Has the patient had 2 falls in the last year or 1 fall with injury or currently using an Ambulatory Assistive Device (Walker, Cane, Wheelchair, Crutches, etc.)? No PATIENT GENDER DATA: Female. status: : No status: NO. PATIENT RELEVANT IMPLANT DATA REVIEWED: Not Applicable PATIENT PRESENTS WITH AN IMPLANTABLE OR ATTACHED SURGICAL INSTRUMENT MAKER: unknown RADIOLOGY DEPARTMENT: Ultrasound complete abdomen PERIPHERAL IV DATA: Not applicable SIGNED BY: RT Jeremiah(R) October 25, 2023 7:33 AM documented in this encounter [facility] 10-25-2023 Note HNO ID: [id number] Author: ZEHRA SANDOVAL RT(R) Service: Radiology Author Type: Technologist Type: Progress Notes Filed: 10/25/2023 07:36 Note Text: Radiology Service Progress Note PATIENT NAME: Paulette Topete DATE OF SERVICE: October 25, 2023 TIME: 7:33 AM PATIENT IDENTITY VERIFICATION COMPLETED USING TWO (2) IDENTIFIERS: Name and Date of confirmed by patient verbally. FALL SCREENING: Has the patient had 2 falls in the last year or 1 fall with injury or currently using an Ambulatory Assistive Device (Walker, Cane, Wheelchair, Crutches, etc.)? No PATIENT GENDER DATA: Female. status: : No status: NO. PATIENT RELEVANT IMPLANT DATA REVIEWED: Not Applicable PATIENT PRESENTS WITH AN IMPLANTABLE OR ATTACHED SURGICAL INSTRUMENT MAKER: unknown RADIOLOGY DEPARTMENT: Ultrasound complete abdomen PERIPHERAL IV DATA: Not applicable SIGNED BY: RT Jeremiah(R) October 25, 2023 7:33 AM [facility] 08-14-2022 Note HNO ID: [id number] Author: Richmond Seaman APRN.ICE CARVER Service: ? Author Type: Nurse Practitioner Type: Progress Notes Filed: 08/14/2022 4:26 PM Note Text: August 14, 2022 HPI: Paulette Topete is a 52 year old female who presents today for Headache, symptoms started 5 days ago. She reports having nausea 4 days ago but not since. No light sensitivity. No fevers/chills. Tylenol does help some. Headache has been constant but varies in intensity. Is left sided,over to lt ear and down lt side of neck. No sinus congestion. Has had a cough off/on since May. Pt had a telehealth visit and they told her to go to an urgent care. PAST MEDICAL HISTORY Diagnosis Date B12 deficiency Fatigue Osteopenia Vitamin D deficiency PAST SURGICAL HISTORY Procedure Laterality Date APPENDECTOMY HX SECTION HX HYSTERECTOMY HX FAMILY HISTORY Problem Relation Age of Onset Depression Mother Breast Cancer Mother Lung Cancer Mother No Known Problems Father Social History Tobacco Use Smoking status: Every Day Packs/day: 0.50 Types: Cigarettes Smokeless tobacco: Never Vaping Use Vaping Use: Never used Substance Use Topics Alcohol use: Not Currently ALLERGIES No Known Allergies There is no immunization history on file for this patient. Current Medications: acetaminophen (TYLENOL) 325 mg cap Take by mouth. ergocalciferol 50,000 unit capsule (VITAMIN D2, DRISDOL) hydrOXYzine HCl (ATARAX) 50 mg tablet cyanocobalamin (VITAMIN B-12) 1,000 mcg tab Take 1,000 mcg by mouth once daily. montelukast (SINGULAIR) 10 mg tablet Take 10 mg by mouth daily at bedtime. FOLIC ACID ORAL Take by mouth. CALCIUM ACETATE ORAL Take by mouth. topiramate (TOPAMAX) 100 mg tablet TAKE 1 TABLET BY MOUTH TWICE A DAY (Patient not taking: Reported on 08/14/2022) fluticasone (FLONASE) 50 mcg/actuation nasal spray (Patient not taking: Reported on 08/14/2022) Review of Systems Constitutional: Negative for chills and fever. HENT: Positive for ear pain (lt). Negative for congestion and sore throat. Eyes: Negative for photophobia. Cardiovascular: Negative for chest pain. Neurological: Positive for headaches. Negative for dizziness, speech change, focal weakness, seizures and weakness. All other systems reviewed and are negative. Objective BP 97/66 Pulse 88 Temp 98.3 Resp 18 Wt 100 lb (45.4kg) SpO2 97% Physical Exam Constitutional: General: She is not in acute distress. Appearance: Normal appearance. She is not ill-appearing or toxic-appearing. HENT: Head: Normocephalic and atraumatic. Right Ear: Tympanic membrane normal. Left Ear: Tympanic membrane normal. Nose: Nose normal. Mouth/Throat: Mouth: Mucous membranes are moist. Pharynx: Oropharynx is clear. No posterior oropharyngeal erythema. Eyes: Conjunctiva/sclera: Conjunctivae normal. Cardiovascular: Rate and Rhythm: Normal rate and regular rhythm. Pulmonary: Effort: Pulmonary effort is normal. No respiratory distress. Breath sounds: Normal breath sounds. No stridor. No wheezing. Musculoskeletal: Cervical back: Neck supple. Tenderness (to the left inferior auricular area. no enlarged lymph node or neck swelling noted. no mastoid tenderness. no rashes. no pain to tap pre auricular area) present. No rigidity. Lymphadenopathy: Cervical: No cervical adenopathy. Skin: General: Skin is warm and dry. Capillary Refill: Capillary refill takes less than 2 seconds. Findings: No petechiae or rash. Neurological: Mental Status: She is alert and oriented to person, place, and time. Cranial Nerves: No cranial nerve deficit. Sensory: No sensory deficit. Motor: No weakness. Coordination: Coordination normal. Comments: Pearla. Good EOEM without nystagmus Psychiatric: Mood and Affect: Mood normal. Behavior: Behavior normal. ASSESSMENT/PLAN: 1. Acute intractable headache, unspecified headache type - ICD9: 784.0, ICD10: R51.9 Offered pt betina,she states she is not nauseated any more Explained to the pt that her exam is unremarkable that she should follow up with PCP or go to the ED if symptoms persist or get worse in any way for a CT of the brain. Pt states understanding Richmond Seaman APRN.[facility] 08-14-2022 History of Present illness Narrative Formatting of this note is different fro m the original. August 14, 2022 HPI: Paulette Topete is a 52 year old female who presents today for Headache, symptoms started 5 days ago. She reports having nausea 4 days ago but not since. No light sensitivity. No fevers/chills. Tylenol does help some. Headache has been constant but varies in intensity. Is left sided,over to lt ear and down lt side of neck. No sinus congestion. Has had a cough off/on since May. Pt had a telehealth visit and they told her to go to an urgent care. PAST MEDICAL HISTORY Diagnosis Date B12 deficiency Fatigue Osteopenia Vitamin D deficiency PAST SURGICAL HISTORY Procedure Laterality Date APPENDECTOMY HX SECTION HX HYSTERECTOMY HX FAMILY HISTORY Problem Relation Age of Onset Depression Mother Breast Cancer Mother Lung Cancer Mother No Known Problems Father Social History Tobacco Use Smoking status: Every Day Packs/day: 0.50 Types: Cigarettes Smokeless tobacco: Never Vaping Use Vaping Use: Never used Substance Use Topics Alcohol use: Not Currently ALLERGIES No Known Allergies There is no immunization history on file for this patient. Current Medications: acetaminophen (TYLENOL) 325 mg cap Take by mouth. ergocalciferol 50,000 unit capsule (VITAMIN D2, DRISDOL) hydrOXYzine HCl (ATARAX) 50 mg tablet cyanocobalamin (VITAMIN B-12) 1,000 mcg tab Take 1,000 mcg by mouth once daily. montelukast (SINGULAIR) 10 mg tablet Take 10 mg by mouth daily at bedtime. FOLIC ACID ORAL Take by mouth. CALCIUM ACETATE ORAL Take by mouth. topiramate (TOPAMAX) 100 mg tablet TAKE 1 TABLET BY MOUTH TWICE A DAY (Patient not taking: Reported on 08/14/2022) fluticasone (FLONASE) 50 mcg/actuation nasal spray (Patient not taking: Reported on 08/14/2022) Review of Systems Constitutional: Negative for chills and fever. HENT: Positive for ear pain (lt). Negative for congestion and sore throat. Eyes: Negative for photophobia. Cardiovascular: Negative for chest pain. Neurological: Positive for headaches. Negative for dizziness, speech change, focal weakness, seizures and weakness. All other systems reviewed and are negative. Objective BP 97/66 Pulse 88 Temp 98.3 Resp 18 Wt 100 lb (45.4kg) SpO2 97% Physical Exam Constitutional: General: She is not in acute distress. Appearance: Normal appearance. She is not ill-appearing or toxic-appearing. HENT: Head: Normocephalic and atraumatic. Right Ear: Tympanic membrane normal. Left Ear: Tympanic membrane normal. Nose: Nose normal. Mouth/Throat: Mouth: Mucous membranes are moist. Pharynx: Oropharynx is clear. No posterior oropharyngeal erythema. Eyes: Conjunctiva/sclera: Conjunctivae normal. Cardiovascular: Rate and Rhythm: Normal rate and regular rhythm. Pulmonary: Effort: Pulmonary effort is normal. No respiratory distress. Breath sounds: Normal breath sounds. No stridor. No wheezing. Musculoskeletal: Cervical back: Neck supple. Tenderness (to the left inferior auricular area. no enlarged lymph node or neck swelling noted. no mastoid tenderness. no rashes. no pain to tap pre auricular area) present. No rigidity. Lymphadenopathy: Cervical: No cervical adenopathy. Skin: General: Skin is warm and dry. Capillary Refill: Capillary refill takes less than 2 seconds. Findings: No petechiae or rash. Neurological: Mental Status: She is alert and oriented to person, place, and time. Cranial Nerves: No cranial nerve deficit. Sensory: No sensory deficit. Motor: No weakness. Coordination: Coordination normal. Comments: Pearla. Good EOEM without nystagmus Psychiatric: Mood and Affect: Mood normal. Behavior: Behavior normal. ASSESSMENT/PLAN: 1. Acute intractable headache, unspecified headache type - ICD9: 784.0, ICD10: R51.9 Offered pt betina,she states she is not nauseated any more Explained to the pt that her exam is unremarkable that she should follow up with PCP or go to the ED if symptoms persist or get worse in any way for a CT of the brain. Pt states understanding Richmond Seaman APRN.CNP documented in this encounter [facility] 08-14-2022 Instructions Richmond Seaman APRN.CNP - 08/14/2022 4:18 PM EST Pt will follow up with PCP if not better in 2-3 days or go to emergency department if worsening condition HEADACHE GENERAL INFORMATION: Almost everyone has a headache occasionally. Most headaches are caused by tension, eye strain, or emotional upset. Headaches can also occur with many medical illnesses. They may be a side effect of some medications. A headache that occurs without other symptoms and only lasts a few hours probably isn't a cause for concern. INSTRUCTIONS: 1. You may use [id number] pain medication such as acetaminophen, ibuprofen, or aspirin unless your doctor recommends otherwise. 2. Try some of the following measures to relieve your headache: Stretch and massage the muscles in your shoulders, neck, jaw, and scalp. Take a hot bath. Rest in a quiet, darkened room. Place a warm or cold wet cloth (whichever feels better to you) over the aching area. 3. Don't skip meals or delay meals for very long. Drink plenty of fluids. 4. Avoid alcoholic beverages and cigarette smoking. These often make a headache worse. 5. Get plenty of rest. A good night's sleep often is the best way to relieve a headache. CONTACT YOUR DOCTOR IF: 1. Your headache gets worse or lasts longer than 24 hours. 2. You develop a temperature over 100.5 F (38 C) 3. You need to take medicine to relieve headache pain more than 3 times a week. RETURN TO THE ED IF: 1. Your headache is different from any headache you ever had before, or is the worst headache of your life. 2. You feel confused or drowsy. 3. Your neck feels stiff. 4. You have a temperature of 102 F (39 C) or higher. 5. You have eye problems such as sensitivity to light or blurred or double vision. 6. You start to vomit. 7. You have difficulty walking, talking, or moving your arms or legs. documented in this encounter [facility] 04-07-2020 History of Present illness Narrative DATE OF SERVICE: 04/06/2020 HISTORY OF PRESENT ILLNESS: A 50-year-old female presenting with chief complaint of left-sided chest pain that started yesterday but has gotten progressively worse throughout yesterday and today. No injury to the area that she can think of. She denies any shortness of breath. Pain is not radiating. No numbness or tingling. She said it is a sharp stabbing pain in the left side of her chest. The pain is slightly relieved when she puts direct pressure on it, but it is a constant pain. Pain is a 6/10 on the pain scale. She has had a slight cough that started on Tuesday but no fevers or chills. No numbness or tingling down the arms or legs. PAST MEDICAL HISTORY: Significant for cervical cancer. SOCIAL HISTORY: She does report smoking half pack of cigarettes a day. Denies alcohol use. FAMILY HISTORY: Significant for stroke and cancer. PAST SURGICAL HISTORY: Significant for hysterectomy. MEDICATIONS: Include Sinus-Max. ALLERGIES: No known drug allergies. No other allergies indicated. REVIEW OF SYSTEMS: Constitutional: No fevers, chills, fatigue. HEENT: No nasal congestion. No sinus drainage. Pulmonary: She does have a slight cough but no shortness of breath. Cardiac: Left-sided chest pain, sharp stabbing pain that is constant that started yesterday and has gotten worse throughout the day. It is not radiating anywhere. No heart palpations. Abdominal: No nausea, vomiting, diarrhea, or abdominal pain. PHYSICAL EXAMINATION: Blood pressure 109/77, pulse 78, respires 16, temperature 99.2, pulse oximetry is 97%. General Appearance: Patient sitting in the exam room in no acute distress. Alert and oriented x3. Pulmonary: Lungs are clear to auscultation. No wheezing, rales, or rhonchi. Normal respiratory effort is observed. Cardiac: Normal rate and rhythm. No murmurs or gallops auscultated. Skin: Exam overall is within normal limits. Musculoskeletal: Central Sterile Technician strength 5/5 bilateral upper and lower extremities. Normal ambulation. Neurovascular: She is neurovascularly intact in bilateral upper and lower extremities. Cranial nerves II through XII are grossly intact. Intact to light touch sensation. Preserved territory service representative strength. DIAGNOSTICS: An EKG was obtained, which overall was normal. She had normal sinus rhythm, no sinus arrhythmia, ventricular rate 77. She had an isolated T wave inversion in , but otherwise, the EKG looked within normal limits. ASSESSMENT AND PLAN: Diagnosis chest pain on the left side of the chest. Patient referred to the emergency room for further evaluation of her symptoms. She did sign AMA against being transported by squad, but her is going to drive her over to the hospital. Patient agreeable. All questions were answered. ALPHONSO Jamison/[id number] SSI File#: [id number] END OF DOCUMENT / CHANGE LOG FOLLOWS Last Edited By Elec. Signed By Kamilah Medrano #WAS Kamilah Medrano #WAS on 04/07/2020 15:33 ET on 04/07/2020 15:33 ET Revision Number - 2 ^^^ Verified/Reviewed by 04/07/20 1533 [facility] PATIENT NAME: BARRETTPAULETTE [address] MEDICAL REC #: [id number] [place] [address] [facility] documented in this encounter [facility] 04-07-2015 History of Present illness Narrative DATE OF VISIT: 04/06/2015 HISTORY OF PRESENT ILLNESS: This 45-year-old female patient came to the [facility] with a complaint of left foot pain of 1 week's duration. She described that pain extends from the dorsum of the foot to the plantar surface of the foot in a band fashion. The patient denies any trauma, fall or injury. Denies any numbness or tingling of toes. Denies history of any dystrophy or peripheral neuropathy disorder. She denies any back pain or any radiculopathy symptoms. Denies any fever, chills, cough, nausea, vomiting, diarrhea, or redness or swelling in the foot, or numbness or tingling into the foot or ankle. The patient described pain on a scale of 1-10 as 3, as an aching pain. The patient denies chronic joint or musculoskeletal disorder or chronic pain syndrome. She had hysterectomy in the past. The only significant history she gave me is that she works in assisted living, and she is on her feet a lot. PHYSICAL EXAMINATION: GENERAL: She was pleasant, alert, and cooperative. VITAL SIGNS: Temperature 98.4, pulse is 71, respirations 19, and pulse ox 98%, blood pressure 126/89. EXTREMITIES: On left foot and ankle examination, no bruise, edema, erythema or tenderness. No deformity was noted. Intact dorsalis pedis and posterior tibialis pulses. I could not elicit any tenderness upon palpation of the tarsal, metatarsal, navicular area or ankle. Achilles tendon is intact. Intact dorsalis pedis and posterior tibialis pulses. Good capillary refill at tip of toes, intact sensation. There was no joint edema, erythema, no red streak. There was no warmness of the foot. Able to wiggle her toes. Achilles tendon intact. Calf muscles nontender. Good range of motion in hip, knee and ankle joints. NECK: Supple. No evidence of meningismus. LUNGS: Clear. No wheezing or rales noted. HEART: Regular rate and rhythm. No murmurs auscultated. ABDOMEN: Soft and nontender. IMAGING: Left foot x-ray was obtained which showed no fracture or dislocation. ASSESSMENT: Left foot pain of undetermined etiology, possible strain, plantar fasciitis cannot be entirely excluded either. PLAN: She does not want postop shoes. I advised to take ibuprofen for pain and ache. She prefers to follow with orthopedic surgeon locally with Dr. Lindo. As a result, she has been referred to Dr. Lindo. Also advised to see her primary care physician, Dr. Parr, for followup. Cristy Lee MD SP/zoë [id number] CC: Verified/Reviewed by 08/12/20 1716 [facility] PATIENT NAME: PAULETTE TOPETE [address] MEDICAL REC #: [id number] [place] [address] [facility] RE[facility]ICIAN documented in this encounter [facility] Evaluation + Plan note No data available for this section [facility] Evaluation note Diagnosis Acute intractable headache, unspecified headache type- Primary [facility] Diagnosis Fever in other diseases- Primary Lyme disease [facility] Diagnosis Fever in other diseases Lyme disease [facility]* ERIK Rivas: PERFORM Event Display: History and Physical Scanned Authored Date: [id number] [facility] Summary Purpose Family History No Family History Records FoundNo Family History Records FoundNo Family History Records FoundNo Family History Records FoundNo Family History Records Found No data available for this section No Family History Records FoundNo Family History Records FoundNo Family History Records FoundNo Family History Records Found Advance Directives No Advanced Directives Records FoundNo Advanced Directives Records FoundNo Advanced Directives Records FoundNo Advanced Directives Records FoundNo Advanced Directives Records FoundNo Advanced Directives Records FoundNo Advanced Directives Records FoundNo Advanced Directives Records FoundNo Advanced Directives Records Found Health Concerns Infection Onset Date Last Indicated Resolved Time COVID-19 Rule-Out 07/08/2021 07/08/2021 07/08/2021 4:50 PM EST COVID-19 Confirmed 07/08/2021 07/08/2021 8:52 PM EST Reason for Referral Specialty Diagnoses / Procedures Referred By Contac t Referred To Contact [facility] Diagnoses Fever in other diseases Lyme disease Procedures ECHO ECHO TTHRC R-T 2D W/WOM-MODE COMPL SPEC&COLR D Al Hazel Mazariegos MD [address] [place] [address] [facility] [address] [address] Referral ID Status Reason Start Date Expiration Date Visits Requested Visits Authorized [id number] Authorized Auto-Generat ed Referral 10/25/2023 06/19/2024 1 1 Additional Source Comments INFORMATION SOURCE (unrecogn ized section and content) DATE CREATED AUTHOR 12/07/2017 [facility] DATE CREATED AUTHOR AUTHOR'S ORGANIZ ATION 08/15/2022 [facility] DATE CREATED AUTHOR AUTHOR'S ORGANIZ ATION 09/18/2022 [facility] DATE CREATED AUTHOR AUTHOR'S ORGANIZ ATION 10/11/2023 [facility] DATE CREATED AUTHOR AUTHOR'S ORGANIZ ATION 02/01/2024 [facility] ([place] DATE CREATED AUTHOR AUTHOR'S ORGANIZ ATION 04/14/2024 [facility] DATE CREATED AUTHOR AUTHOR'S ORGANIZ ATION 07/29/2024 [facility] DATE CREATED AUTHOR AUTHOR'S ORGANIZ ATION 08/07/2024 [facility] DATE CREATED AUTHOR AUTHOR'S ORGANIZ ATION 09/09/2024 [facility] Source Comments (unrecognize d section and content) In the event this informatio n is protected by the Federal Confidentiality of Alcohol and Drug Abuse Patient Records regulations: The Federal rules restrict any use of the information to criminally investigate or prosecute any alcohol or drug abuse patient.[facility] HealthIn the event this information is protected by the Federal Confidentiality of Alcohol and Drug Abuse Patient Records regulations: The Federal rules restrict any use of the information to criminally investigate or prosecute any alcohol or drug abuse patient.[facility] HealthIn the event this information is protected by the Federal Confidentiality of Alcohol and Drug Abuse Patient Records regulations: The Federal rules restrict any use of the information to criminally investigate or prosecute any alcohol or drug abuse patient.[facility] HealthIn the event this information is protected by the Federal Confidentiality of Alcohol and Drug Abuse Patient Records regulations: The Federal rules restrict any use of the information to criminally investigate or prosecute any alcohol or drug abuse patient.[facility] HealthIn the event this information is protected by the Federal Confidentiality of Alcohol and Drug Abuse Patient Records regulations: The Federal rules restrict any use of the information to criminally investigate or prosecute any alcohol or drug abuse patient.[facility] HealthIn the event this information is protected by the Federal Confidentiality of Alcohol and Drug Abuse Patient Records regulations: The Federal rules restrict any use of the information to criminally investigate or prosecute any alcohol or drug abuse patient.[facility] HealthIn the event this information is protected by the Federal Confidentiality of Alcohol and Drug Abuse Patient Records regulations: The Federal rules restrict any use of the information to criminally investigate or prosecute any alcohol or drug abuse patient.[facility] Care Teams (unrecognized sec tion and content) Tanning Wheel Operator Relationship Specialty Start Date End Date Carmen Tang [address] [place] [address] PCP - General Primary Care 03/06/21 Carmen Tang CNP [address] [facility] [place] [address] Referring Family Practice 03/06/21 Tanning Wheel Operator Relationship Specialty Start Date End Date Carmen Tang [address] [place] [address] PCP - General Primary Care 03/06/21 Carmen Tang CNP [address] [facility] [place] [address] Referring Family Practice 03/06/21 Tanning Wheel Operator Relationship Specialty Start Date End Date Carmen Tang [address] [facility] [place] [address] PCP - General Primary Care 03/06/21 Carmen Tang CNP [address] [facility] [address] Referring Family Medicine 03/06/21 Tanning Wheel Operator Relationship Specialty Start Date End Date Carmen Tang Eloisa [address] [facility] [place] [address] PCP - General Primary Care 03/06/21 Carmen Tang CNP [address] [facility] [address] Referring Family Medicine 03/06/21 Tanning Wheel Operator Relationship Specialty Start Date End Date Carmen Tang WANDA Amin [address] [facility] [place] [address] PCP - General Primary Care 03/06/21 TangFreemanah JAXON Ennis Referring Family Medicine 03/06/21 Tanning Wheel Operator Relationship Specialty Start Date End Date Carmen [email or web address] [address] [place] [address] PCP - General Primary Care 03/06/21 Freeman Tangah JAXON Ennis Referring Family Medicine 03/06/21 Tanning Wheel Operator Relationship Specialty Start Date End Date Carmen Tang Eloisa [employer]IST.JAXON [address] [place] [address] PCP - General Primary Care 03/06/21 Freeman Tangah JAXON Ennis Referring Family Medicine 03/06/21 Reason for Visit (unrecogniz ed section and content) Reason Comments Headache Patient presents wit h a headache, symptoms started 5 days ago. She reports having nausea 4 days ago. The patient has been taking Tylenol. Specialty Diagnoses / Procedures Referred By Contac t Referred To Contact [employer] Diagnoses Lyme disease DX:Fever with lyme disease Order indexed Procedures US ABDOMINAL REAL TIME W/IMAGE DOCUMENTATION US ABDOMEN COMPLETE Hazel Collins MD [address] [place] [address] [employer] [address] [address] Referral ID Status Reason Start Date Expiration Date Visits Re quested Visits Authorized [id number] Closed 10/25/2023 06/19/2024 1 1 Specialty Diagnoses / Procedures Referred By Contac t Referred To Contact [facility] Diagnoses Fever in other diseases Lyme disease Procedures ECHO ECHO TTHRC R-T 2D W/WOM-MODE COMPL SPEC&COLR D Hazel Collins, MD [address] [place] [address] [facility] [place] [address] Referral ID Status Reason Start Date Expiration Date V isits Requested Visits Authorized [id number] Closed Auto-Generate d Referral 10/25/2023 06/19/2024 1 1 FOR RECORDS PERTAINING TO PATIENTS WHO ARE OR HAVE BEEN ENROLLED IN A CHEMICAL DEPENDENCY/SUBSTANCEABUSE PROGRAM, SOME INFORMATION MAY BE OMITTED. This clinical summary was aggregated from multiple sources. Caution should be exercised in using it in the provision of clinical care. This summary normalizes information from multiple sources, and as a consequence, information in this document may materially change the coding, format and clinical context of patient data. In addition, data may be omitted in some cases. CLINICAL DECISIONS SHOULD BE BASED ON THE PRIMARY CLINICAL RECORDS. [employer] [facility]. provides no warranty or guarantee of the accuracy or completeness of information in this document.
[2025-03-19 05:07] LABS: QNTFERON TB Mitogen Value > 10.00 IU/mL (.); QNTFERON TB Nil Value 0.05 IU/mL (.); QNTFERON TB1+ Ag Value 0.06 IU/mL (.); QNTFERON TB2+ Ag Value 0.04 IU/mL (.); QNTIFERON TB Positive Criteria Negative (Negative)
== END | disposition home or self-care (01) ==
LOC: MTLAB 15:31
PROVIDERS: Referring Provider Internal Medicine Rheumatology; Visit Provider Internal Medicine Rheumatology
DX: M05.79 Rheumatoid arthritis with rheumatoid factor of multiple sites without organ or systems involvement (principal); Z79.899 Other long term (current) drug therapy; R76.8 Other specified abnormal immunological findings in serum; M79.7 Fibromyalgia
CPT/HCPCS: 36415; 71046; 86480